=== PATIENT | female | born 1985 | race African-American/Black ===

== ENCOUNTER 2016-07-20 13:59 | Emergency (ER) | payer OTHER ==
[2016-07-20 15:31] VITALS: BP 150/100
--- NOTE | 2016-07-20 16:50 | UC ---
Dental HPI - HPI Summary HPI Summary: three days ago had LEFT LOWER WISDOM TOOTH PULLED BY [facility]. TODAY SWELLING AND PAIN ARE WORSE. UNABLE TO CONTROL PAIN WITH TYLENOL AND IBUPROFEN. NO FEVERS. NO DISCHARGE - History of Current Complaint Chief Complaint: UCDentalProblem Stated Complaint: TOOTH ACHE Time Seen by Provider: 07/20/16 15:37 Hx Obtained From: Patient Hx Last Menstrual Period: June 27 Onset/Duration: Sudden Onset, Lasting Days, Still Present Severity: Mild Aggravating: Chewing Related History: Previous Dental Care on Same Tooth, Swelling - Allergies/Home Medications Allergies/Adverse Reactions: Allergies Allergy/AdvReac Type Severity Reaction Status Date / Time No Known Allergies Allergy Verified 02/12/15 16:16 Home Medications: Home Medications Acetaminophen [Tylenol] 325 mg PO 07/20/16 [History] PMH/Surg Hx/FS Hx/Imm Hx Previously Healthy: Yes Endocrine History Of: Denies: Diabetes Cardiovascular History Of: Reports: Hypertension - on and off - Surgical History Surgical History: Yes Surgery Procedure, Year, and Place: [facility] - Family History Known Family History: Negative: Cardiac Disease - Social History Occupation: Employed Full-time Lives: With Family Alcohol Use: None Substance Use Type: None Smoking Status (MU): Never Smoked Tobacco Have You Smoked in the Last Year: No Review of Systems Constitutional: Negative Skin: Negative Eyes: Negative ENT: Dental Pain Respiratory: Negative Cardiovascular: Negative Gastrointestinal: Negative Genitourinary: Negative Motor: Negative Neurovascular: Negative Musculoskeletal: Negative Neurological: Negative Psychological: Negative All Other Systems Reviewed And Are Negative: Yes Physical Exam Triage Information Reviewed: Yes Appearance: Well-Appearing, No Pain Distress, Well-Nourished Vital Signs: Initial Vital Signs Temp 98.0 F 07/20/16 15:24 Pulse 89 07/20/16 15:24 Resp 18 07/20/16 15:24 BP 150/100 07/20/16 15:24 Pulse Ox 100 07/20/16 15:24 Vital Signs Reviewed: Yes Eye Exam: Normal Eyes: Positive: Conjunctiva Clear ENT Exam: Normal ENT: Positive: Normal ENT inspection, Hearing grossly normal, TMs normal Dental: Positive: Percussion Tenderness @ - 32, Other: - #32 POST EXTRACTION PAIN EDEMA Neck exam: Normal Respiratory Exam: Normal Respiratory: Positive: Chest non-tender, Lungs clear, Normal breath sounds, No respiratory distress, No accessory muscle use Cardiovascular Exam: Normal Cardiovascular: Positive: RRR, No Murmur, Pulses Normal Abdominal Exam: Normal Musculoskeletal Exam: Normal Musculoskeletal: Positive: Strength Intact, ROM Intact Neurological Exam: Normal Psychological Exam: Normal Psychological: Positive: Normal Response To Family Skin Exam: Normal Dental Complaint Course/Dx - Differential Dx/Diagnosis Differential Diagnosis/Dx: Dental Abscess, Dental Caries, Fractured Tooth, Post Extraction Pain Provider Diagnoses: #32 POST EXTRACTION DENTAL PAIN Discharge - Discharge Plan Condition: Stable Disposition: HOME Prescriptions: Amoxicillin/Clavulanate TAB* [Augmentin TAB 875*] 875 mg PO BID #20 tab traMADol TAB* [Ultram*] 50 mg PO Q12H PRN #8 tab MDD TWO TABS PRN Reason: Pain Patient Education Materials: Toothache (ED) Referrals: Denys Arevalo MD [Primary Care Provider] - [facility]: 1 - TENDER HERE
== END 2016-07-20 16:46 | disposition home or self-care (01) ==
LOC: UCEAST 13:59
DX: K08.409 Partial loss of teeth, unspecified cause, unspecified class (principal)
CPT/HCPCS: 99212; G0463

== ENCOUNTER 2016-10-12 10:52 | Emergency (ER) | payer OTHER ==
[2016-10-12 11:01] VITALS: BP 158/86
--- NOTE | 2016-10-12 11:27 | UC ---
Viktoriya, DoctorMonae, scribed for Delmer Parker MD on 10/12/16 at 1114 . Lower Extremity/Ankle HPI - HPI Summary HPI Summary: 31 year old female arrived to [facility] c/o right leg pain and edema. She reports feeling completely fine last night, and noticing pain and swelling this morning. She has pain while ambulating, as well as pain in the right ankle and the back of the right knee. She is able to move her toes and right ankle. She does not have any knowledge of injury/strain recently, and was in the car for a few hours yesterday with no other recent travel. She is a regular smoker; no PMHx of FHx of DVT. - History of Current Complaint Chief Complaint: UCLowerExtremity Stated Complaint: LEG SWELLING Time Seen by Provider: 10/12/16 11:02 Hx Obtained From: Patient Hx Last Menstrual Period: one month ago Onset/Duration: Gradual Onset Severity Initially: Moderate Severity Currently: Moderate Aggravating Factor(s): Ambulation Able to Bear Weight: Yes - Yes, but painful - Allergies/Home Medications Allergies/Adverse Reactions: Allergies Allergy/AdvReac Type Severity Reaction Status Date / Time No Known Allergies Allergy Verified 10/12/16 11:01 Home Medications: Home Medications NK [No Home Medications Reported] 10/12/16 [History Confirmed 10/12/16] PMH/Surg Hx/FS Hx/Imm Hx Endocrine History Of: Denies: Diabetes Cardiovascular History Of: Reports: Hypertension - on and off - Surgical History Surgical History: Yes Surgery Procedure, Year, and Place: [facility] - Family History Known Family History: Positive: Other - Negative: DVT Negative: Cardiac Disease - Social History Occupation: Employed Full-time Alcohol Use: Occasionally Substance Use Type: None Smoking Status (MU): Current Every Day Smoker Have You Smoked in the Last Year: No Review of Systems Constitutional: Other - Negative: Fever Musculoskeletal: Edema - right leg edema, Other: - right leg and ankle pain pain All Other Systems Reviewed And Are Negative: Yes Physical Exam Triage Information Reviewed: Yes Appearance: Well-Appearing, No Pain Distress Vital Signs: Initial Vital Signs Temp 98.9 F 10/12/16 10:57 Pulse 87 10/12/16 10:57 Resp 12 10/12/16 10:57 BP 158/86 04/22/17 10:57 Pulse Ox 99 10/12/16 10:57 Vital Signs Reviewed: Yes Eyes: Positive: Conjunctiva Clear, Other: - EOMI, LYNDA ENT: Positive: Normal ENT inspection Neck: Positive: Supple, Nontender Respiratory: Positive: Lungs clear, Normal breath sounds Cardiovascular: Positive: RRR Abdomen Description: Positive: Nontender, Soft Bowel Sounds: Positive: Present Musculoskeletal Exam: Normal Musculoskeletal: Positive: Strength Intact, ROM Intact, Edema @ - Pitting edema (right calf), Other: - tender right calf Psychological Exam: Normal Skin Exam: Normal Lower Extremity Course/Dx - Course Course Of Treatment: TRANSFER TO ED FOR US NO US HERE AT CLINIC TODAY. DISCUSSED WITH PATIENT. STABLE IN CLINIC. DISCUSSED WITH DR ROGERS IN ED. - Differential Dx/Diagnosis Provider Diagnoses: RIGHT LE SWELLING AND PAIN WITHOUT ANY KNOWN TRAUMA. - Physician Notifications Discussed Patient Care With: 1110: Discussed care of pt with Dr. Rogers ([facility]) . She agrees to accept pt. Discharge - Discharge Plan Condition: Stable Disposition: AGAINST MEDICAL ADVICE Referrals: Denys Arevalo MD [Primary Care Provider] - The documentation as recorded by the Doctor wynn Tahera accurately reflects the service I personally performed and the decisions made by me, Delmer Parker MD.
== END 2016-10-12 11:15 | disposition left against medical advice (07) ==
LOC: UCEAST 10:52
DX: R60.0 Localized edema (principal); F17.210 Nicotine dependence, cigarettes, uncomplicated; I10 Essential (primary) hypertension
CPT/HCPCS: 99212; G0463

== ENCOUNTER 2016-10-12 11:40 | Emergency (ER) | payer OTHER ==
[2016-10-12 12:01] VITALS: BP 160/83
[2016-10-12 13:11] LABS: Hematocrit 40 % (35-47); Hemoglobin 13.4 g/dl (12.0-16.0); Mean Corpuscular HGB Conc 34 g/dl (31-36); Mean Corpuscular Hemoglobin 29 pg (27-31); Mean Corpuscular Volume 87 fL (80-97); Mean Platelet Volume 11 um3 (7.4-10.4); Red Cell Distribution Width 13 % (10.5-15); White Blood Count 3.6 10^3/ul (3.5-10.8)
[2016-10-12 13:25] LABS: ALT 51 U/L (7-52); AST 39 U/L (13-39); Alkaline Phosphatase 69 U/L (34-104); Anion Gap 4 mmol/L (2-11); BUN/Creatinine Ratio 26.2 (8-20); Blood Urea Nitrogen 17 mg/dL (6-24); CO2 Carbon Dioxide 27 mmol/L (22-32); Calcium 9.5 mg/dL (8.6-10.3); Chloride 103 mmol/L (101-111); EGFR African American 135.8 (>60); EGFR Non-African American 105.6 (>60); Globulin 5.1 g/dL (2-4); Glucose 86 mg/dL (70-100); Potassium 3.8 mmol/L (3.5-5.0); Sodium 134 mmol/L (133-145); Total Protein 9.1 g/dL (6.4-8.9)
--- NOTE | 2016-10-12 13:48 | RAD ---
Indication: Right calf pain. Duplex Doppler sonography of the deep venous system of the right lower extremity deep venous system was performed. Bilaterally the common femoral veins appear patent and compressible. Right proximal greater saphenous vein, proximal deep femoral vein, femoral vein, popliteal vein, posterior tibial veins and peroneal veins appear patent and compressible. IMPRESSION: NO EVIDENCE OF DEEP VENOUS THROMBOSIS IS IDENTIFIED.
--- NOTE | 2016-10-26 17:59 | ED ---
Nilay Sadler Billy, scribed for Apolonia Mccann MD on 10/12/16 at 1413 . Lower Extremity - HPI Summary HPI Summary: Patient is a 31 year-old female coming to [facility] for evaluation of right lower extremity pain since last night. She denies any other symptoms such as chest pain or SOB. She reports that she had been on a long car ride recently, but she states that she may also have injured her RLE at work, where she stands for long periods of time. - History of Current Complaint Chief Complaint: EDExtremityLower Stated Complaint: RT LEG SWELLING/SENT FROM [facility] Time Seen by Provider: 10/12/16 11:54 Hx Obtained From: Patient Hx Last Menstrual Period: one month ago Mechanism Of Injury: Unknown - no injury Onset of Pain: Hours Onset/Duration: Hours Severity Initially: Moderate Severity Currently: Moderate Pain Intensity: 5 Pain Scale Used: 0-10 Numeric Timing: Constant Location: Is Discrete @ - RLE Character Of Pain: Aching Associated Signs And Symptoms: Positive: Negative Aggravating Factor(s): Nothing Alleviating Factor(s): Nothing Able to Bear Weight: Yes - Allergies/Home Medications Allergies/Adverse Reactions: Allergies Allergy/AdvReac Type Severity Reaction Status Date / Time No Known Allergies Allergy Verified 10/12/16 11:59 PMH/Surg Hx/FS Hx/Imm Hx Endocrine/Hematology History: Denies: Hx Diabetes Cardiovascular History: Reports: Hx Hypertension - not on meds GI History: Reports: Hx Gastroesophageal Reflux Disease - ON DAILY OMEPRAZOLE Sensory History: Reports: Hx Contacts or Glasses - GLASSES Opthamlomology History: Reports: Hx Contacts or Glasses - GLASSES - Cancer History Cancer Type, Location and Year: none - Surgical History Surgery Procedure, Year, and Place: [facility] Hx Anesthesia Reactions: No Infectious Disease History: No Infectious Disease History: Denies: Hx Clostridium Difficile, Hx Hepatitis, Hx Human Immunodeficiency Virus (HIV), Hx of Known/Suspected MRSA, Hx Shingles, Hx Tuberculosis, Hx Known/ Suspected VRE, Hx Known/Suspected VRSA, History Other Infectious Disease, Traveled Outside the [place] in Last 30 Days - Family History Known Family History: Positive: Other - Negative: DVT Negative: Cardiac Disease Family History: Family history of various cancers. - Social History Alcohol Use: Occasionally Substance Use Type: Reports: None Smoking Status (MU): Light Every Day Tobacco Smoker Have You Smoked in the Last Year: No Review of Systems Constitutional: Negative Negative: Chest Pain Negative: Shortness Of Breath Gastrointestinal: Negative Positive: Myalgia Neurological: Negative Psychological: Normal All Other Systems Reviewed And Are Negative: Yes Physical Exam Triage Information Reviewed: Yes Vital Signs On Initial Exam: Initial Vitals Temp Pulse Resp BP Pulse Ox 98.3 F 86 16 160/83 100 10/12/16 11:59 10/12/16 11:59 10/12/16 11:59 10/12/16 11:59 10/12/16 11:59 Vital Signs Reviewed: Yes Appearance: Positive: No Pain Distress Skin: Positive: Warm, Dry Head/Face: Positive: Normal Head/Face Inspection Eyes: Positive: EOMI, Conjunctiva Clear ENT: Positive: Hearing grossly normal. Negative: Muffled/hoarse voice Neck: Positive: Supple, Nontender Respiratory/Lung Sounds: Positive: Clear to Auscultation, Breath Sounds Present Cardiovascular: Positive: RRR, Pulses are Symmetrical in both Upper and Lower Extremities. Negative: Murmur Abdomen Description: Positive: Nontender, Soft Bowel Sounds: Positive: Present Musculoskeletal: Positive: Strength/ROM Intact. Negative: Edema Left, Edema Right Neurological: Positive: Sensory/Motor Intact, Alert, Oriented to Person Place, Time. Negative: Facial Droop, Focal Deficit @, Slurred Speech Diagnostics - Vital Signs Vital Signs Temp Pulse Resp BP Pulse Ox 10/12/16 12:01 98.2 F 82 16 160/83 100 10/12/16 11:59 98.3 F 86 16 160/83 100 - Laboratory Lab Results: Lab Results 10/12/16 10/12/16 10/12/16 Range/Units 12:55 12:55 12:55 WBC 3.6 (3.5-10.8) 10^3/ul RBC 4.60 (4.0-5.4) 10^6/ul Hgb 13.4 (12.0-16.0) g/dl Hct 40 (35-47) % MCV 87 (80-97) fL MCH 29 (27-31) pg MCHC 34 (31-36) g/dl RDW 13 (10.5-15) % Plt Count 110 L (150-450) 10^3/ul MPV 11 H (7.4-10.4) um3 Neut % (Auto) 46.3 (38-83) % Lymph % (Auto) 34.8 (25-47) % Throckmorton % (Auto) 17.6 H (1-9) % Eos % (Auto) 0.8 (0-6) % Baso % (Auto) 0.5 (0-2) % Absolute Neuts (auto) 1.7 (1.5-7.7) 10^3/ul Absolute Lymphs (auto) 1.2 (1.0-4.8) 10^3/ul Absolute Monos (auto) 0.6 (0-0.8) 10^3/ul Absolute Eos (auto) 0 (0-0.6) 10^3/ul Absolute Basos (auto) 0 (0-0.2) 10^3/ul Absolute Nucleated RBC 0.01 10^3/ul Nucleated RBC % 0.2 INR (Anticoag Therapy) 1.06 (0.89-1.11) Sodium 134 (133-145) mmol/L Potassium 3.8 (3.5-5.0) mmol/L Chloride 103 (101-111) mmol/L Carbon Dioxide 27 (22-32) mmol/L Anion Gap 4 (2-11) mmol/L BUN 17 (6-24) mg/dL Creatinine 0.65 (0.51-0.95) mg/dL Est GFR ( Amer) 135.8 (>60) Est GFR (Non-Af Amer) 105.6 (>60) BUN/Creatinine Ratio 26.2 H (8-20) Glucose 86 (70-100) mg/dL Calcium 9.5 (8.6-10.3) mg/dL Total Bilirubin 0.30 (0.2-1.0) mg/dL AST 39 (13-39) U/L ALT 51 (7-52) U/L Alkaline Phosphatase 69 (34-104) U/L C-Reactive Protein 8.50 H (< 5.00) mg/L Total Protein 9.1 H (6.4-8.9) g/dL Albumin 4.0 (3.2-5.2) g/dL Globulin 5.1 H (2-4) g/dL Albumin/Globulin Ratio 0.8 L (1-3) Beta HCG, Quant < 0.60 mIU/mL Result Diagrams: 04/22/17 12:55 10/12/16 12:55 Lab Statement: Any lab studies that have been ordered have been reviewed, and results considered in the medical decision making process. - Ultrasound No standard instances Ultrasound Interpretation Completed By: Radiologist - RLE ultrasound: No evidence for DVT. Lower Extremity Course/Dx - Course Assessment/Plan: 31 year-old female coming to the ED for evaluation of RLE pain since last night. RLE US was negative for DVT. Labs reviewed. Patient will be discharged home to follow up with PCP. - Diagnoses Provider Diagnoses: Leg pain, Hypertension, poor control Discharge - Discharge Plan Condition: Stable Disposition: HOME Patient Education Materials: Leg Pain (ED) Forms: *Work Release Referrals: Denys Arevalo MD [Primary Care Provider] - The documentation as recorded by the Nilay wynn Billy accurately reflects the service I personally performed and the decisions made by Ramy toussaint Barbara J, MD.
== END 2016-10-12 14:40 | disposition home or self-care (01) ==
LOC: ED 11:40
DX: I10 Essential (primary) hypertension (principal); M79.606 Pain in leg, unspecified
CPT/HCPCS: 36415; 80053; 84702; 85025; 85610; 86140; 99282

== ENCOUNTER 2016-12-30 09:57 | Emergency (ER) | payer OTHER ==
[2016-12-30 10:25] VITALS: BP 159/81
== END 2016-12-30 11:50 | disposition left against medical advice (07) ==
LOC: UCEAST 09:57
DX: R06.00 Dyspnea, unspecified (principal)

== ENCOUNTER 2017-12-26 23:54 | Emergency (ER) | payer OTHER ==
[2017-12-27] MEDS ORDERED: Ketorolac INJ* 30 MG/ML 1 ML VIAL IM ONE (01:11)
[2017-12-27] MEDS ORDERED: Lidocaine PATCH 5%* 1 PATCH TRANSDERM ONE (01:11)
[2017-12-27] MEDS ORDERED: Cyclobenzaprine TAB* 10 MG PO ONE (01:11)
--- NOTE | 2017-12-27 01:13 | ED ---
Lower Extremity - HPI Summary HPI Summary: 32-year-old female presents with left hip pain today. 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 She denies any history of hip pain. She's denies any back pain. No numbness or tingling. No weakness. No injury. No fevers. She hasn't taking anything for pain. States as time progressed the pain has gone worse. Denies any urinary symptoms. She has history of HTN. She is able to ambulate. She denies any back pain. No saddle anesthesia or loss of bowel or bladder. - History of Current Complaint Chief Complaint: EDHipPelvisInjury Stated Complaint: HIP PAIN Time Seen by Provider: 12/27/17 01:05 Hx Last Menstrual Period: 12/20/16 Pain Intensity: 7 - Allergies/Home Medications Allergies/Adverse Reactions: Allergies Allergy/AdvReac Type Severity Reaction Status Date / Time No Known Allergies Allergy Verified 10/12/16 11:59 PMH/Surg Hx/FS Hx/Imm Hx Endocrine/Hematology History: Denies: Hx Diabetes Cardiovascular History: Reports: Hx Hypertension - not on meds GI History: Reports: Hx Gastroesophageal Reflux Disease - ON DAILY OMEPRAZOLE Sensory History: Reports: Hx Contacts or Glasses - GLASSES Opthamlomology History: Reports: Hx Contacts or Glasses - GLASSES - Cancer History Cancer Type, Location and Year: none - Surgical History Surgery Procedure, Year, and Place: [facility] Hx Anesthesia Reactions: No Infectious Disease History: No Infectious Disease History: Denies: Hx Clostridium Difficile, Hx Hepatitis, Hx Human Immunodeficiency Virus (HIV), Hx of Known/Suspected MRSA, Hx Shingles, Hx Tuberculosis, Hx Known/ Suspected VRE, Hx Known/Suspected VRSA, History Other Infectious Disease, Traveled Outside the [place] in Last 30 Days - Family History Known Family History: Positive: Other - Negative: DVT Negative: Cardiac Disease Family History: Family history of various cancers. - Social History Alcohol Use: Rare Substance Use Type: Reports: None Smoking Status (MU): Former Smoker Have You Smoked in the Last Year: No Review of Systems Negative: Fever Negative: Chest Pain Negative: Shortness Of Breath Positive: Myalgia - left hip pain All Other Systems Reviewed And Are Negative: Yes Physical Exam Triage Information Reviewed: Yes Vital Signs On Initial Exam: Initial Vitals Temp Pulse Resp BP Pulse Ox 97.9 F 110 20 161/114 100 07/06/18 23:56 12/26/17 23:56 12/26/17 23:56 12/26/17 23:56 12/26/17 23:56 Vital Signs Reviewed: Yes Appearance: Positive: Well-Appearing Skin: Positive: Warm, Dry Head/Face: Positive: Normal Head/Face Inspection Eyes: Positive: Normal, Conjunctiva Clear ENT: Positive: Pharynx normal Respiratory/Lung Sounds: Positive: Clear to Auscultation, Breath Sounds Present Cardiovascular: Positive: Normal, RRR Musculoskeletal: Positive: Strength/ROM Intact - Left hip with pain, Other - Nontender back, and nontender SI joint, tenderness over left hip, no rash, good pulses, sensation grossly intact, positive Fernando test Neurological: Positive: Normal Psychiatric: Positive: Normal Diagnostics - Vital Signs Vital Signs Temp Pulse Resp BP Pulse Ox 12/26/17 23:56 97.9 F 110 20 161/114 100 - Laboratory Lab Statement: Any lab studies that have been ordered have been reviewed, and results considered in the medical decision making process. Lower Extremity Course/Dx - Course Course Of Treatment: 32-year-old female presents with left hip pain today. 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 She denies any history of hip pain. She's denies any back pain. No numbness or tingling. No weakness. No injury. No fevers. She hasn't taking anything for pain. States as time progressed the pain has gone worse. Denies any urinary symptoms. She has history of HTN. She is able to ambulate. On exam has tenderness over left hip. Positive FERNANDO test. Full range of motion of hip with pain. Neurovascular intact. Did not get x-rays as has full range of motion and good strength. Will treat with ibuprofen and Flexeril. Told to follow-up with primary. Patient understands and agrees plan. - Diagnoses Differential Diagnosis/HQI/PQRI: Positive: Fracture (Closed), Sprain, Strain Provider Diagnoses: Left hip pain Discharge - Sign-Out/Discharge Documenting (check all that apply): Discharge/Admit/Transfer - Discharge Plan Condition: Good Disposition: HOME Prescriptions: Cyclobenzaprine TAB* [Flexeril 10 MG TAB*] 10 mg PO TID PRN #15 tab PRN Reason: Pain Patient Education Materials: Hip Pain (ED) Forms: *Work Release Referrals: Denys Arevalo MD [Primary Care Provider] - Additional Instructions: Take muscle relaxers three times a day Use ibuprofen or Tylenol for pain every 6 hours ice/heat area, move as much as possible Follow up with primary within 5 days Return to ED if develop any new or worsening symptoms - Billing Disposition and Condition Condition: GOOD Disposition: Home
[2017-12-27 01:47] VITALS: BP 142/100
== END 2017-12-27 01:52 | disposition home or self-care (01) ==
LOC: ED 23:54
DX: M25.552 Pain in left hip (principal); Z87.891 Personal history of nicotine dependence; Z87.19 Personal history of other diseases of the digestive system; Z86.79 Personal history of other diseases of the circulatory system
CPT/HCPCS: 96372; 99283; A9270-GY; J1885

== ENCOUNTER 2018-04-04 23:13 | Emergency (ER) | payer OTHER ==
--- OUTSIDE RECORDS SUMMARY | 2018-04-04 23:42 | XMS REPORT ---
:1985 External Reference #:[id number] Author Organization [employer] Address [address] [place] [address] [place] [address] Phone [phone] Care Team Providers Name Role Phone Luis Wong MD Primary Care Physician Unavailable Payers Type Date Identification Numbers Payment Provider Subscriber Commercial Expires: Policy Number: [id number] [employer] Johanna Parikh 2015 Medicaid Group Name: [id number] [address] [address] PayID: [id number] [place] [address] Commercial Policy Number: [id number] [employer] Medicaid Johanna Parikh PayID: [id number] [address] [address] [place] [address] Problems Date Description Provider Status Onset: 01/20/2018 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 Family History Date Family Member(s) Problem(s) Comments General Hypertension General Stroke General Cancer Social History Type Date Description Comments Lives With Alone Occupation Retail ETOH Use Denies alcohol use Smoking Patient is a former smoker Exercise Type/Frequency Exercises sporadically Allergies, Adverse Reactions, Alerts Date Description Reaction Status Severity Comments 02/22/2016 NKDA active Medications Medication Date Status Form Strength Qnty SIG Indications Ordering Provider Diclofenac Sodium 03/17/ Active Tablets 75mg 60tabs take [address] yoni Lai MD twice a day with food Tylenol 00/00/ Active Tablets 325mg as Unknown 0000 needed Naproxen 00/00/ Active Tablets 500mg 1 tablet Unknown 0000 with food by mouth twice a day Cyclobenzaprine / Active Tablets 10mg 1 tablet Unknown HCL 0000 by mouth q8 hours as needed muscle spasms Ultracet 03/15/ Hx Tablets 37.5-325mg 30tabs 1 - 2 po Lilly 2012 - q4-6hr Rui 06/23/ prn pain M.DMariluz 2016 Medications Administered in Office Medication Date Status Form Strength Qnty SIG Indications Ordering Provider Triamcinolone 01/20/ Administered Injection Zaneb (Kenalog) 2017 MD Ming Vital Signs Date Vital Result Comment 03/17/2018 Height 74 inches 6'2" Weight 270.00 lb BP Systolic 128 mmHg BP Diastolic 80 mmHg Respiratory Rate 18 /min Pain Level 5 BMI (Body Mass Index) 34.7 kg/m2 01/20/2018 Height 74 inches 6'2" Weight 270.00 lb BP Systolic 132 mmHg BP Diastolic 78 mmHg Respiratory Rate 18 /min Pain Level 5 BMI (Body Mass Index) 34.7 kg/m2 01/13/2018 Height 74 inches 6'2" Heart Rate 96 /min BP Systolic 118 mmHg BP Diastolic 78 mmHg Body Temperature 98.1 F Pain Level 7 04/17/2016 Height 74 inches 6'2" Heart Rate 96 /min BP Systolic 134 mmHg BP Diastolic 80 mmHg Pain Level 4 02/22/2016 Height 74 inches 6'2" Weight 250.00 lb Heart Rate 84 /min BP Systolic 137 mmHg BP Diastolic 86 mmHg BMI (Body Mass Index) 32.1 kg/m2 Results Description No Information Procedures Date CPT Code Description Status 01/20/2018 63177 Inj/Aspir Major JT Or Bursa W/ US Completed 03/19/2016 65218 Nerve Conduction 07-08 Studies Completed 03/19/2016 62113 Needle Electromyography Each Extremity W/Related Completed Paraspinal Areas 03/16/2013 98958 Carpal Tunnel Release Completed 03/16/2013 77647 Trigger Finger Release Incision / Tendon Sheath Completed Incision Encounters Type Date Location Provider CPT E/M Dx Office Visit 01/13/2018 10:45a [facility] [place] [address] M24.152 C.[facility].A. M54.16 M70.62 Office Visit 04/17/2016 3:10p [facility] [address] G56.02 Of C.M.AMariluz Al G56.01 G56.03 Office Visit 02/22/2016 2:30p [facility] 74997 G56.01 Of Ricky Al G56.02 R20.0 R20.2 Office Visit 03/04/2013 1:45p [facility], [address] 354.0 Ricky Al 727.03 Plan of Care 03/17/2018 - Chanel Lai, MDM24.152 Other articular cartilage disorders, left hipNew Medication:Diclofenac Sodium 75 mgNew Xrays:MRI Hip Left ArthrogramFollow up:Follow up: after MRI
[2018-04-05] MEDS ORDERED: Cyclobenzaprine TAB* 10 MG PO ONE (01:19)
[2018-04-05] MEDS ORDERED: Ibuprofen TAB* 600 MG PO ONE (01:19)
--- NOTE | 2018-04-05 01:20 | ED ---
Upper Extremity Pain - HPI Summary HPI Summary: Patient is a 32-year-old female presenting to the ED with left shoulder pain over the scapula region. She denies any trauma. She states the shoulder began to hurt 2-3 days ago and is been continuing despite ibuprofen at home. She denies any numbness or tingling to the arm. Denies any ecchymosis, color or temperature changes. She states this is never happened to her before. 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 She denies any other symptoms. - History of Current Complaint Chief Complaint: HaiderSlava Stated Complaint: LT SHOULDER PAIN Time Seen by Provider: 04/04/18 23:50 Hx Obtained From: Patient Hx Last Menstrual Period: 12/20/16 Onset/Duration: Started Days Ago Timing: Constant Severity Initially: Moderate Severity Currently: Moderate Pain Location: Other: - scapular pain - L Aggravating Factor(s): Nothing Alleviating Factor(s): Rest Associated Signs & Symptoms: Negative: Swelling, Redness, Bruising Related History: Dominant Hand Right - Risk Factors Non-Orthopedic Risk Factor: Negative DVT Risk Factors: Negative Septic Arthritis Risk Factor: Negative Compartment Syndrome Risk Factors: Pain - Allergies/Home Medications Allergies/Adverse Reactions: Allergies Allergy/AdvReac Type Severity Reaction Status Date / Time No Known Allergies Allergy Verified 04/04/18 23:29 PMH/Surg Hx/FS Hx/Imm Hx Previously Healthy: Yes Endocrine/Hematology History: Denies: Hx Diabetes Cardiovascular History: Denies: Hx Hypertension, Hx Pacemaker/ICD GI History: Reports: Hx Gastroesophageal Reflux Disease - ON DAILY OMEPRAZOLE Sensory History: Reports: Hx Contacts or Glasses - GLASSES Denies: Hx Hearing Aid Opthamlomology History: Reports: Hx Contacts or Glasses - GLASSES Psychiatric History: Denies: Hx Panic Disorder - Cancer History Cancer Type, Location and Year: none - Surgical History Surgery Procedure, Year, and Place: CHOLECYSTECTOMY 3 YRS AGO Hx Anesthesia Reactions: No - Immunization History Hx Pertussis Vaccination: No Immunizations Up to Date: Yes Infectious Disease History: No Infectious Disease History: Denies: Hx Clostridium Difficile, Hx Hepatitis, Hx Human Immunodeficiency Virus (HIV), Hx of Known/Suspected MRSA, Hx Shingles, Hx Tuberculosis, Hx Known/ Suspected VRE, Hx Known/Suspected VRSA, History Other Infectious Disease, Traveled Outside the [place] in Last 30 Days - Family History Known Family History: Positive: Other - Negative: DVT Negative: Cardiac Disease Family History: Family history of various cancers. - Social History Occupation: Employed Full-time Lives: With Family Alcohol Use: Occasionally Hx Substance Use: No Substance Use Type: Reports: None Hx Tobacco Use: Yes Smoking Status (MU): Former Smoker Have You Smoked in the Last Year: No Review of Systems Constitutional: Negative Negative: Fever, Chills, Fatigue, Skin Diaphoresis Negative: Palpitations, Chest Pain Negative: Shortness Of Breath, Cough Genitourinary: Negative Positive: no symptoms reported, see HPI Positive: Arthralgia, Myalgia Skin: Negative Neurological: Negative All Other Systems Reviewed And Are Negative: Yes Physical Exam Triage Information Reviewed: Yes Vital Signs On Initial Exam: Initial Vitals Temp Pulse Resp BP Pulse Ox 97.5 F 88 16 163/102 99 04/04/18 23:25 04/04/18 23:25 04/04/18 23:25 04/04/18 23:25 04/04/18 23:25 Vital Signs Reviewed: Yes Appearance: Positive: Well-Appearing, Well-Nourished Skin: Positive: Warm, Skin Color Reflects Adequate Perfusion Head/Face: Positive: Normal Head/Face Inspection Eyes: Positive: EOMI, LYNDA, Conjunctiva Clear Neck: Positive: Supple, No Lymphadenopathy Respiratory/Lung Sounds: Positive: Clear to Auscultation, Breath Sounds Present Cardiovascular: Positive: RRR, Pulses are Symmetrical in both Upper and Lower Extremities Musculoskeletal: Positive: Pain @ - left scapular region under shoulder blade - no pain to the RTC Neurological: Positive: Sensory/Motor Intact, Alert, Oriented to Person Place, Time, Speech Normal Diagnostics - Vital Signs Vital Signs Temp Pulse Resp BP Pulse Ox 04/04/18 23:25 97.5 F 88 16 163/102 99 - Laboratory Lab Statement: Any lab studies that have been ordered have been reviewed, and results considered in the medical decision making process. Course/Dx - Course Course Of Treatment: Patient is evaluated for left shoulder pain. She denies any injury. Denies any ecchymosis, other color or temperature changes. She denies trauma. She states the pain is directly under the scapular region and radiates up into the neck and down the arm. Pain is a 2/10, constant and aching. Improved somewhat with ibuprofen and heat. Discussed with patient treatment options. I have offered Flexeril. I believe this is an overuse injury from her job and I have encouraged gentle stretches, Flexeril, ibuprofen , moist heat and to stop the ensuing activity which is causing her tendinopathy. - Diagnoses Differential Diagnosis/HQI/PQRI: Positive: Fracture (Closed), Strain, Sprain Provider Diagnoses: Tendinopathy, Shoulder pain Discharge - Sign-Out/Discharge Documenting (check all that apply): Patient Departure - Discharge Plan Condition: Stable Disposition: HOME Referrals: Denys Arevalo MD [Primary Care Provider] - Additional Instructions: Heat to the area Ibuprofen 600 mg 3 times daily 5 days Flexeril up to 3 times daily for muscle pain Gentle stretches against a wall Tennis ball massage Massage therapy Don't lift push or pull heavy objects and no repetitive movements Resting as much as possible will help - Billing Disposition and Condition Condition: STABLE Disposition: Home
[2018-04-05 02:30] VITALS: BP 131/92
== END 2018-04-05 02:30 | disposition home or self-care (01) ==
LOC: ED 23:13
DX: M75.80 Other shoulder lesions, unspecified shoulder (principal); M25.512 Pain in left shoulder; Z87.891 Personal history of nicotine dependence
CPT/HCPCS: 99282; A9270-GY

== ENCOUNTER 2018-07-08 08:24 | Inpatient (IN) | payer OTHER ==
--- NOTE | 2018-07-08 08:57 | ED ---
Upper Extremity Pain - HPI Summary HPI Summary: A 32 y/o F presents to ED with c/o sudden-onset, atraumatic, LUE numbness and pain onset 2 days ago and worsening yesterday. The numbness and pain were intermittent but is becoming more constant. Pain rated as 8 out of 10 at bedside. Pt describes the pain as going from her shoulder to her finger tips. She has had recent previous LUE pain from elbow to fingertips, dx: sprain, but those sx were not as severe. Associated sx: L hand weakness, mild neck pain. Denies: confusion. Alleviating factor: applying pressure. OTC medication has not alleviated the symptoms. PMHx: Denies DM, HTN. At baseline, she has a hx of bilateral LE edema and joint pain for which she is scheduled to see a rhumatologist next month. - History of Current Complaint Chief Complaint: EDExtremityUpper Stated Complaint: PAIN IN LEFT ARM/NUMBNESS Time Seen by Provider: 07/08/18 08:44 Hx Obtained From: Patient Hx Last Menstrual Period: 12/20/16 Mechanism Of Injury: Unknown - denies trauma Onset/Duration: Started Days Ago, Still Present Timing: Intermittent, Lasting Days Severity Initially: Moderate Severity Currently: Severe - 8 out of 10 Pain Location: Arm - LUE shoulder to hand Alleviating Factor(s): Other - pressure Associated Signs & Symptoms: Positive: Weakness - L hand, Numbness/Tingling - LUE, Neck Pain - mild, Other - neg: confusion - Allergies/Home Medications Allergies/Adverse Reactions: Allergies Allergy/AdvReac Type Severity Reaction Status Date / Time No Known Allergies Allergy Verified 07/08/18 08:32 Home Medications: Home Medications Meloxicam(NF) [Mobic(NF)] 15 mg PO DAILY 07/08/18 [History Confirmed 07/08/18] PMH/Surg Hx/FS Hx/Imm Hx Previously Healthy: No Endocrine/Hematology History: Denies: Hx Diabetes Cardiovascular History: Denies: Hx Hypertension, Hx Pacemaker/ICD GI History: Reports: Hx Gastroesophageal Reflux Disease - ON DAILY OMEPRAZOLE Sensory History: Reports: Hx Contacts or Glasses - GLASSES Denies: Hx Hearing Aid Opthamlomology History: Reports: Hx Contacts or Glasses - GLASSES Psychiatric History: Denies: Hx Panic Disorder - Cancer History Cancer Type, Location and Year: none - Surgical History Surgery Procedure, Year, and Place: CHOLECYSTECTOMY 3 YRS AGO Hx Anesthesia Reactions: No Infectious Disease History: No Infectious Disease History: Denies: Hx Clostridium Difficile, Hx Hepatitis, Hx Human Immunodeficiency Virus (HIV), Hx of Known/Suspected MRSA, Hx Shingles, Hx Tuberculosis, Hx Known/ Suspected VRE, Hx Known/Suspected VRSA, History Other Infectious Disease, Traveled Outside the [place] in Last 30 Days - Family History Known Family History: Positive: Other - Negative: DVT Negative: Cardiac Disease Family History: Family history of various cancers. - Social History Occupation: Employed Full-time Lives: Alone Alcohol Use: Occasionally Hx Substance Use: No Substance Use Type: Reports: None Hx Tobacco Use: Yes Smoking Status (MU): Former Smoker Have You Smoked in the Last Year: No Review of Systems Musculoskeletal: Other - pos: LUE pain from shoulder to hand; mild neck pain Neurological: Other - neg: confusion Positive: Weakness - L hand, Numbness - LUE All Other Systems Reviewed And Are Negative: Yes Physical Exam - Summary Physical Exam Summary: VITAL SIGNS: Reviewed. GENERAL: Patient is a well-developed and nourished FEMALE who is lying comfortable in the stretcher. Patient is not in any acute respiratory distress. HEAD AND FACE: No signs of trauma. No ecchymosis, hematomas or skull depressions. No sinus tenderness. EYES: PERRLA, EOMI x 2, No injected conjunctiva, no nystagmus. EARS: Hearing grossly intact. Ear canals and tympanic membranes are within normal limits. MOUTH: Oropharynx within normal limits. NECK: Supple, trachea is midline, no adenopathy, no JVD, no carotid bruit, some c-spine tenderness CHEST: Symmetric, no tenderness at palpation LUNGS: Clear to auscultation bilaterally. No wheezing or crackles. CVS: Regular rate and rhythm, S1 and S2 present, no murmurs or gallops appreciated. ABDOMEN: Soft, non-tender. No signs of distention. No rebound, no guarding, and no masses palpated. Bowel sounds are normal. EXTREMITIES: LUE weakness worse compared to RUE; decreased sensation in L compared to R; Phalen's test is positive NEURO: Alert and oriented x 3. No acute neurological deficits. Speech is normal and follows commands. SKIN: Dry and warm Triage Information Reviewed: Yes Vital Signs On Initial Exam: Initial Vitals Temp Pulse Resp BP Pulse Ox 97.0 F 92 16 154/93 99 07/08/18 08:27 07/08/18 08:27 07/08/18 08:27 07/08/18 08:27 07/08/18 08:27 Vital Signs Reviewed: Yes - Apurva Coma Scale Best Eye Response: 4 - Spontaneous Best Motor Response: 6 - Obeys Commands Best Verbal Response: 5 - Oriented Coma Scale Total: 15 Diagnostics - Vital Signs Vital Signs Temp Pulse Resp BP Pulse Ox 07/08/18 08:27 97.0 F 92 16 154/93 99 - Laboratory Result Diagrams: 07/08/18 09:30 07/08/18 09:30 Lab Statement: Any lab studies that have been ordered have been reviewed, and results considered in the medical decision making process. - Radiology L WRIST XR Radiology Interpretation Completed By: Radiologist Summary of Radiographic Findings: IMPRESSION: NO ACUTE OSSEOUS INJURY. IF SYMPTOMS PERSIST, RECOMMEND REPEAT IMAGING. ED provider has reviewed this report. - CT BRAIN CT CT Interpretation Completed By: Radiologist Summary of CT Findings: IMPRESSION: No acute intracranial pathology. ED provider has reviewed this report. C-SPINE CT Interpretation Completed By: Radiologist Summary of CT Findings: IMPRESSION: 1. STRAIGHTENING OF THE CERVICAL LORDOSIS. 2. MILD DEGENERATIVE DISC DISEASE DESCRIBED ABOVE, WITHOUT OSSEOUS NEURAL FORAMINAL. NARROWING OR CENTRAL CANAL STENOSIS. 3. MULTIPLE SUBCENTIMETER SHORT AXIS LYMPH NODES OF THE UPPER NECK WITHOUT. LYMPHADENOPATHY BY SIZE CRITERIA. ED provider has reviewed this report. Course/Dx - Course Assessment/Plan: A 32 y/o F presents to ED with c/o sudden-onset, atraumatic, LUE numbness and pain onset 2 days ago and worsening yesterday. The numbness and pain were intermittent but is becoming more constant. Pain rated as 8 out of 10 at bedside. Pt describes the pain as going from her shoulder to her finger tips. She has had recent previous LUE pain from elbow to fingertips, dx: sprain, but those sx were not as severe. Associated sx: L hand weakness, mild neck pain. Denies: confusion. Alleviating factor: applying pressure. OTC medication has not alleviated the symptoms. PMHx: Denies DM, HTN. At baseline, she has a hx of bilateral LE edema and joint pain for which she is scheduled to see a rhumatologist next month. Blood work without any significant abnormality except for what was a count WBC of 2.6 and platelets of 6. Glucose is 102, CRP was 8.22. Because of the weakness and the numbness in the left upper extremity , decided to do a head CT and C-spine CT. Head CT impression: No acute interconnected pathology. C-spine CT impression: And straightening of the cervical lordosis. Mild degenerative disc disease. No gross used or foraminal narrowing or central canal stenosis. Multiple subcentric short axis lymph nodes of the open neck without lymphadenopathy. Initially in the ED course the patient was given Toradol for the pain and Decadron does not inflammatory. I discussed case with Dr. Gómez from hematology and he will consult for this patient. He recommends admission to the hospital services. The patient appears to be stable she doesnt have any bruising or any sites of bleeding. I discuss my physical exam, findings and test results with Dr. Galindo from the hospitalist services and he agrees to admit patient to his services. Patient is hemodynamically stable alert and oriented x 3. - Diagnoses Differential Diagnosis/HQI/PQRI: Positive: Bursitis, Fracture (Closed), Strain, Sprain Provider Diagnoses: Acute ITP, LUE numbness, Neck pain - Physician Notifications Discussed Care of Patient With: Juan Gómez - oncology Time Discussed With Above Provider: 10:15 Instructed by Provider To: Other - Will consult, recommends admission via hospitalist Discharge - Sign-Out/Discharge Documenting (check all that apply): Patient Departure - ADM - Discharge Plan Condition: Stable Disposition: ADMITTED TO [facility] Referrals: Luis Wong MD [Primary Care Provider] - - Billing Disposition and Condition Condition: STABLE Disposition: Admitted to [facility] - Attestation Statements Document Initiated by Reggieibnata: Yes Documenting Scribe: Aydee Edwards Provider For Whom Konstantin is Documenting (Include Credential): Dr. Faraz Lyon MD Scribe Attestation: Aydee Sadler scribed for Dr. Faraz Lyon MD on 07/08/18 at 1212. Scribe Documentation Reviewed: Yes Provider Attestation: The documentation as recorded by the Aydee wynn accurately reflects the service I personally performed and the decisions made by me, Dr. Faraz Lyon MD Status of Scribe Document: Viewed Consult Consult: 1035: Consult with Dr. Galindo, hospitalist Will admit patient.
[2018-07-08] MEDS ORDERED: Dexamethasone IV* 4 MG/ML 1 ML (4 MG) IV SLOW PU ONE (09:03)
[2018-07-08] MEDS ORDERED: Ketorolac INJ* 30 MG/ML 1 ML VIAL IV PUSH ONE (09:03)
[2018-07-08 09:55] LABS: Hematocrit 36 % (35-47); Hemoglobin 12.2 g/dl (12.0-16.0); Mean Corpuscular HGB Conc 34 g/dl (31-36); Mean Corpuscular Hemoglobin 29 pg (27-31); Mean Corpuscular Volume 86 fL (80-97); Red Blood Count 4.21 10^6/ul (4.00-5.40); Red Cell Distribution Width 13 % (10.5-15); White Blood Count 2.6 10^3/ul (3.5-10.8)
[2018-07-08 09:58] LABS: Albumin 4.1 g/dL (3.2-5.2); Albumin/Globulin Ratio 0.9 (1-3); C Reactive Protein 8.22 mg/L (<8.01); Calcium 9.1 mg/dL (8.6-10.3); EGFR African American 109.4 (>60); EGFR Non-African American 90.4 (>60); Globulin 4.5 g/dL (2-4); Potassium 3.5 mmol/L (3.5-5.0); Total Bilirubin 0.4 mg/dL (0.2-1.0); Total Protein 8.6 g/dL (6.4-8.9)
[2018-07-08 10:19] LABS: ABS Basophils 0 10^3/ul (0-0.2); ABS Eosinophils 0 10^3/ul (0-0.6); ABS Lymphocytes 0.5 10^3/ul (1.0-4.8); ABS Monocytes 0.3 10^3/ul (0-0.8); ABS Neutrophils 1.7 10^3/ul (1.5-7.7); ABS Nucleated RBC 0 10^3/ul; Eosinophil % 1.6 %; Lymphocyte % 21.2 %; Mean Platelet Volume 12.3 fL (7.4-10.4); Nucleated Red Blood Cells % 0.1
[2018-07-08 10:57] LABS: Platelet Count 8 10^3/ul (150-450)
[2018-07-08 11:04] LABS: Erythrocyte Sed Rate 79 mm/Hr (0-14)
[2018-07-08 13:53] LABS: Uric Acid 6.4 mg/dL (2.3-6.6)
[2018-07-08] MEDS: oxyCODONE/Acetamin 5/325 MG* TAB PO PRN ×2 (14:28→19:23)
--- NOTE | 2018-07-08 14:57 | HP ---
HISTORY AND PHYSICAL: DATE OF ADMISSION: 07/08/18 PRIMARY CARE PROVIDER: Dr. Luis Wong. ATTENDING PHYSICIAN: Dr. Chacorta Galindo.* (DICTATED BY MARIO ALBERTO PEREZ) CHIEF COMPLAINT: Left shoulder and arm pain. HISTORY OF PRESENT ILLNESS: Ms. Parikh is a 32-year-old female with a past medical history of GERD who presented to the ER today with complaints of left shoulder and arm pain for approximately 2 days. She states that it has gotten worse in the last 24 hours. She has no history of injury. She reports that a similar incident occurred approximately 1 month ago where she had pain from her left elbow down to her fingertips and felt numbness and tingling from the fingertips to the elbow. She was worked up and it was reported to her that she had "strange blood work." She states that her "MARYA test came back speckled." Today, the pain is throughout her whole arm and includes her shoulder. She describes the pain as shooting and it starts at approximately her biceps and shoots down. Nothing makes the pain better. She states that she does have some amount of weakness in the left arm since the pain started. The pain has been constant for the last 2 days and has worsened in the last 24 hours, which brought her to the ER today. The patient states that she has experienced approximately 30 to 40 pounds of unintentional weight loss over the last 6 months; she denies fever, chills, sweats and night sweats. She also complains of swelling in both wrists and both ankles as well as the right leg. She complained that the tip of her tongue was purple for approximately 10 hours yesterday and it slowly started to recede. Today there is still discoloration of the tongue. She complains of abdominal pain with certain foods and attributes this to her cholecystectomy, stating that greasy foods tend to bother her more and she tries to avoid them. She complains of weakness in all extremities, particularly her right leg, which began in May. She also complains of pain from the right knee to the ankle as well as the left arm. Last menstrual period was June 29, 2018. Pt denies easy bleeding, bruising , gum or nose bleedes, IV drug use, rashes, fever, or chance of . In the ER, she received Decadron and Ketorolac. She had a cervical spine and head CT scan as well as a wrist x- ray. She also had blood work that revealed a very low platelet count of 8 and low white blood cell count of 2.6. ESR and CRP were both elevated. She had an appointment to see a traffic engineering director at the end of this month regarding her abnormal blood work from a month ago. At today' s visit, Dr. Gómez was consulted and the Hospitalist group was asked to evaluate for admission. PAST MEDICAL HISTORY: Gastroesophageal reflux disease. The patient stopped her omeprazole approximately 4 months ago. PAST SURGICAL HISTORY: Cholecystectomy in 2014; right carpal tunnel, 2009. HOME MEDICATIONS: Meloxicam 15 mg p.o. daily. The patient has been on this medication for approximately 1 month. ALLERGIES: No known drug allergies. FAMILY HISTORY: Negative for coronary artery disease or diabetes. Mother had thyroid cancer. Paternal and maternal grandmothers had intestinal cancer. SOCIAL HISTORY: The patient states that she quit smoking approximately 8 months ago and that she was a light smoker for approximately 4 years, smoking less than a pack a week. She occasionally drinks alcohol. She states she drinks approximately every 6 months. She states that she used to use marijuana , but does not use it anymore and does not use any other recreational drug. 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 She is not . She has one child, a 4-year-old son who she lives with. REVIEW OF SYSTEMS: A 10-point review of systems was performed and all the pertinent positives and negatives are in the HPI. All other systems are negative. PHYSICAL EXAMINATION GENERAL: Ms. Parikh is a well-developed, well-nourished, obese -[place] woman who is sitting up in bed in no acute distress. She is holding her left wrist. She appears her stated age. She is pleasant and cooperative. VITAL SIGNS: Temperature 97.0, pulse rate 92, oxygen saturation 100% on room air, blood pressure is 134/89. HEENT: Visual madden grossly intact. Pupils equally round and reactive to light and accommodation. Extraocular movements intact. Sclerae without icterus or conjunctival hemorrhage. Hearing grossly intact. Oral mucous membranes moist, without lesions or gingival bleeding. Borders of the first third of the tongue are speckled with petechiae. NECK: Full range of motion. Thyroid is nonpalpable. Trachea at midline. Posterior cervical lymphadenopathy is present. No other cervical lymphadenopathy noted. RESPIRATORY: Symmetrical chest expansion with no accessory muscle use. Lungs are clear to auscultation. No rhonchi, wheezing, or rubs. CARDIOVASCULAR: Regular rate and rhythm. S1, S2 are present. No murmurs, rubs , or gallops. No JVD. ABDOMEN: Bowel sounds normoactive throughout. Abdomen is soft and nontender to palpation. There is no hepatosplenomegaly. MUSCULOSKELETAL: Right arm licensed funeral director strength is 4/5. Left arm licensed funeral director strength is 5/ 5. There is slight swelling in both upper and lower extremities, nonpitting. The right arm is tender to palpation throughout. Radial and dorsalis pedis pulses 2+ bilaterally. NEUROLOGIC: A and O x3. Moves all extremities. Motor strength is 5/5 in upper and lower extremities bilaterally. Sensation is intact to light touch in all extremities. SKIN: Very small patches of slight petechiae to the right arm underneath blood pressure cuff. No other petechiae noted elsewhere on the body. Grossly intact without lesions. Skin is warm and moist. DIAGNOSTIC STUDIES/LAB DATA: CT of brain without, impression: No acute intracranial pathology. CT of cervical spine without, impression: 1. Straightening of the cervical lordosis. 2. Mild degenerative disk disease as described above without osseous neuroforaminal narrowing or central canal stenosis. 3. Multiple subcentimeter short axis lymph node of the upper neck without lymphadenopathy by size criteria. X-ray of the left wrist, impression: no acute osseous injury. If symptoms persist, recommend repeat imaging. WBC 2.6, RBC 4.21, Hgb 12.2, HCT 36, platelet count 8, MPV is 12.3, ESR 79. Sodium 136, potassium 3.5, chloride 105, carbon dioxide 26, BUN 17, creatinine 0.74, CRP 8.22. ASSESSMENT AND PLAN: Ms. Parikh is a 32-year-old female with a past medical history of gastroesophageal reflux disease who presented to the ER today with complaints of left upper extremity pain. The patient will be admitted observation for: 1. Thrombocytopenia, leukopenia. CT of chest, abdomen, and pelvis with contrast has been ordered to evaluate for the presence of further lymphadenopathy. MRI of the brain and neck with contrast ordered. The case has been discussed with Dr. Gómez and he will order a fine-needle aspiration of axillary lymph nodes as well as a bone biopsy. CBC and CMP ordered for the morning to evaluate platelet count. The patient has a rheumatology consult scheduled in the future, which she should keep. 2. Left upper extremity pain. Oxycodone/acetaminophen 5/325 order q4h prn pain 3. FEN. The patient is n.p.o. for her CT. She can resume regular diet thereafter. 4. Code status. The patient is full code. 5. DVT prophylaxis. The patient is moderate risk. We will forgo any sort of medication due to thrombocytopenia. The patient up with assist. DISPOSITION: Discharge once stable and testing is finished. TIME SPENT: Approximately 70 minutes were spent on this admission, greater than half of that time spent with the patient obtaining history, performing physical, and reviewing the plan of care. The case has been reviewed with my attending, Dr. Galindo, who is in agreement with the plan of care. MARIO ALBERTO PEREZ [id number]/[facility] #: [id number] KAYDEN
--- NOTE | 2018-07-08 15:32 | PROCNOTE ---
Hematology/Oncology Procedure Hematology/Oncology Procedure Note: Bone Marrow Biopsy and Aspirate: Procedure reviewed with patient including risks and benefits. Informed consent obtained. Time out performed per protocol. Anesthesia, 2% lidocaine, approx. 10 mLs administered with good effect. Bone marrow biopsy and aspirate performed without obvious complications. Pt. tolerate well. Minimal blood loss.
[2018-07-08] MEDS ORDERED: Iohexol 300* (CONTRAST) 10 ML SDV IV ONE (16:51)
[2018-07-08] MEDS ORDERED: Gadoteridol* (CONTRAST) 279.3 MG/ML 10 ML IV ONE (17:04)
[2018-07-09] MEDS: oxyCODONE/Acetamin 5/325 MG* TAB PO PRN ×5 (03:40→23:01)
--- NOTE | 2018-07-09 04:05 | CONS ---
CC: Dr. Luis Wong; Dr. Juan Gómez; Dr. Rajiv Goode * MEDICAL ONCOLOGY CONSULTATION: DATE OF CONSULT: 07/08/18 REASON FOR CONSULT: Thrombocytopenia and adenopathy. HISTORY OF PRESENT ILLNESS: Johanna Parikh is a 32-year-old female, who reports that her appetite has been down for several months and that she has lost weight recently in over the past 5 to 6 months, believes that she is down 50 to 60 pounds. She reports that about 6 weeks ago, she noted swelling of her legs, right greater than left, was seen by nurse practitioner at [facility] and at that time, laboratory studies were obtained, revealing increased inflammatory markers and positive MARYA. She was scheduled to see Dr. Goode of Rheumatology and has an appointment for late July. She has noticed an ankle edema, has increased somewhat recently. Approximately 2 days ago, she noticed some numbness in her left hand and then yesterday afternoon and evening noticed that the numbness had extended up her entire arm. She felt that she was also having some weakness in her left leg on standing over the past 24 hours. She reports some headache for approximately 1 week, which has been intermittent in the bifrontal region. She actually had to call her sister to pick remover her son and she felt the headaches were impairing her ability to drive yesterday. She has had headaches essentially every day over the past week, lasting up to 2-1/2 hours, yesterday with little improvement after Advil. She has not had any headaches today. She denies any speech or vision problems associated with this. Due to the increased numbness and weakness in the arm and the headaches, she presented to the emergency room. Once there, she had laboratory studies done, which revealed a total white count of 2600, H and H of 36/12.2, and a platelet count of 8000. Differential was essentially normal. Peripheral smear was reviewed by myself and pathology and other than showing decreased platelets without any clumping, did not show any significant other abnormalities. In addition, the patient has had some abdominal pain, but thinks that this is related to the food that she has taken in since her previous cholecystectomy. PAST MEDICAL HISTORY: Cholecystectomy, 2015; carpal tunnel surgery, 2010; history of GERD. MEDICATIONS: 1. Meloxicam 15 mg daily. 2. Previously had been on Celebrex. 3. Previously had been on omeprazole. ALLERGIES: None. FAMILY HISTORY: Mother of a sudden cardiac event at 54 with a previous history of thyroid cancer in her 30s. Father is 58, alive and well. Two siblings, alive and well. Maternal grandmother with small bowel cancer, dying at 64 and paternal grandmother with colon cancer, dying at 67. No other family history of malignancies. SOCIAL HISTORY: The patient lives with her 4-year-old son. She is not . 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 She smoked approximately less than a pack a day for 4 years and quit 8 months ago. Alcohol, rare. Did use marijuana in the past, but none for the last 6 weeks. Denies any other recreational drugs. REVIEW OF SYSTEMS: No significant bleeding or bruising issues, specifically no gum bleeds, nosebleeds, blood in her urine or stool. Neurologic symptoms as discussed above. No shortness of breath, chest pain, or palpitations. Arthritic complaints as discussed above. Does have some pain in right knee, in right ankle, and reports these are also swollen at times. Review of systems otherwise negative except as discussed above. PHYSICAL EXAM: A 32-year-old female, lying comfortably on the stretcher in the emergency room, in no acute distress. Vital Signs: Blood pressure 134/89, pulse 92, afebrile. HEENT: PERRL, EOMI. No erythema or exudates. No scleral icterus. There is shotty adenopathy in bilateral cervical regions and normal size occasional anterior cervical lymph nodes as well. 2-cm bilateral axillary adenopathy is noted. These nodes are nontender and are mobile. No inguinal adenopathy is noted. Heart: Regular rate and rhythm without murmurs, rubs, or gallops. Lungs: Clear. Abdomen: Soft, nontender without masses or organomegaly. The patient is obese and difficult to determine if there is any splenomegaly. No significant petechiae on the skin. Neurologic Exam: The patient is alert and oriented x3. Motor is 5/5 in both upper and lower extremities bilaterally with the exception of some slight decrease in handgrip on the left. There is no drift. Cranial nerves III through XII are intact. DIAGNOSTIC STUDIES/LAB DATA: CT scan of the brain without contrast with no significant findings. CT scan of the cervical spine with some mild degenerative disk disease and small lymph nodes noted anteriorly and posteriorly, but normal by size criteria. Laboratory studies: CBC as discussed above. Sedimentation rate 79, sodium 136 , potassium 3.5, chloride 105, bicarb 26, BUN 17, creatinine 0.74. CRP mildly elevated at 8.2. LFTs are normal. LDH is mildly elevated at 344 and uric acid is normal at 6.4. IMPRESSION AND PLAN: 1. A 32-year-old female, who presents with tingling, numbness, and weakness by her account along with some pain in the left arm along with reported weakness in her left leg and headaches. There are no significant focal neurologic deficits noted to my exam. However, at the same time, multiple other findings are noted included a marked decrease in her platelet count and mild decrease in her white count and an elevated LDH. On physical exam, the lymph nodes in the cervical region are shotty and normal size. There are more nodes present than normal and she has significant bilateral axillary adenopathy. This is concerning for malignant process specifically concerning for some type of hematologic malignancy such as lymphoma. Fine needle aspiration of axillary lymph nodes will be obtained later today by Dr. Carter. Bone marrow aspirate and biopsy will also be performed. I have asked the patient to have further imaging of the brain and cervical spine with contrast MRI to be sure that there are no lesions present that would cause focal deficits in the left arm. CT scan of the chest, abdomen, and pelvis will also be necessary to look for further adenopathy in other locations as well as looking for potential abnormalities in visceral organs. 2. Thrombocytopenia. The patient did receive a dose of Decadron from the emergency room physician in an attempt to alleviate some of her neurologic and pain symptoms. I have asked this not to be continued at the present time until the workup for potential malignancy is completed. If she would have a lymphoma , continued dosing of steroids may alter our ability to obtain an accurate diagnosis. If her platelets drop further or if she were to have any significant bleeding, then platelet transfusion at this time would be warranted. It is possible that she has an idiopathic thrombocytopenic purpura secondary to a bone marrow process in which case steroids and/or IVIG might be appropriate. It is also possible that her bone marrow is packed with cells producing the low platelet count without an immune process being present. 3. DVT prophylaxis. Thrombocytopenia is present. The patient is up and ambulatory. No peripheral access at the present time. 4. Weakness in the left arm. MRI scans as discussed above. If the weakness continues and/or worsens and there is no significant findings on the imaging as noted above, neurologic consultation would be appropriate. If the patient's platelet count were to be adequate, a lumbar puncture might also be useful. [id number]/[facility] #: [id number] MTDD
[2018-07-09 05:53] LABS: ABS Basophils 0.1 10^3/ul (0-0.2); ABS Eosinophils 0 10^3/ul (0-0.6); ABS Lymphocytes 0.8 10^3/ul (1.0-4.8); ABS Monocytes 0.5 10^3/ul (0-0.8); ABS Neutrophils 1.8 10^3/ul (1.5-7.7); ABS Nucleated RBC 0 10^3/ul; Eosinophil % 0.4 %; Hematocrit 36 % (35-47); Hemoglobin 12.4 g/dl (12.0-16.0); Lymphocyte % 24.1 %; Mean Corpuscular HGB Conc 35 g/dl (31-36); Mean Corpuscular Hemoglobin 30 pg (27-31); Mean Corpuscular Volume 85 fL (80-97); Mean Platelet Volume 10.7 fL (7.4-10.4); Nucleated Red Blood Cells % 0.2; Platelet Count 9 10^3/ul (150-450); Red Blood Count 4.19 10^6/ul (4.00-5.40); Red Cell Distribution Width 13 % (10.5-15); White Blood Count 3.2 10^3/ul (3.5-10.8)
[2018-07-09 06:01] LABS: Albumin 3.8 g/dL (3.2-5.2); Albumin/Globulin Ratio 0.8 (1-3); BUN/Creatinine Ratio 23.3 (8-20); Calcium 9.1 mg/dL (8.6-10.3); EGFR African American 111.1 (>60); EGFR Non-African American 91.8 (>60); Globulin 4.5 g/dL (2-4); Potassium 3.8 mmol/L (3.5-5.0); Total Bilirubin 0.4 mg/dL (0.2-1.0); Total Protein 8.3 g/dL (6.4-8.9)
--- NOTE | 2018-07-09 09:38 | PN ---
Progress Note - Progress Note Date of Service: 07/09/18 SOAP: Subjective: headaches better this am. when she has them they are bifrontal and associated with nausea and photophobia. hand numbness persists. pain medications helping with shooting pain up left arm and sensation of muscle tightness in left bicept. reports 20 lb weight loss in 6 months, unintentional. no significant night sweats or fevers. no diplopia. reports marked menorrhagia with last period (06/29-07/03) to the point where blood was "gushing out" of her without clotting. Objective: Vital Signs Temp Pulse Resp BP Pulse Ox 97.3 F 95 16 137/65 100 07/09/18 07:25 07/09/18 07:25 07/09/18 08:51 07/09/18 07:25 07/09/18 07:25 sitting up in nad perr eomi adentulous on upper CTA bl s1 s2 nl obese no obvious HSM no LE edema 2-3 cm adenopathy right axilla, shotty left, bilateral inguinal shotty adenopathy good strength throughout A+O x 3, globally nonfocal on my exam Laboratory Results - last 24 hr 07/08/18 07/08/18 07/09/18 09:30 09:30 05:17 WBC 2.6 L 3.2 L RBC 4.21 4.19 Hgb 12.2 12.4 Hct 36 36 MCV 86 85 MCH 29 30 MCHC 34 35 RDW 13 13 Plt Count 8 L* 9 L* MPV 12.3 H 10.7 H Neut % (Auto) 65.1 56.6 Lymph % (Auto) 21.2 24.1 Hardin % (Auto) 11.1 16.6 Eos % (Auto) 1.6 0.4 Baso % (Auto) 1.0 2.3 Absolute Neuts (auto) 1.7 1.8 Absolute Lymphs (auto) 0.5 L 0.8 L Absolute Monos (auto) 0.3 0.5 Absolute Eos (auto) 0 0 Absolute Basos (auto) 0 0.1 Absolute Nucleated RBC 0 0 Nucleated RBC % 0.1 0.2 ESR 79 H Hem Pathologist Commnt Sodium 136 Potassium 3.5 Chloride 105 Carbon Dioxide 26 Anion Gap 5 BUN 17 Creatinine 0.74 Est GFR ( Amer) 109.4 Est GFR (Non-Af Amer) 90.4 BUN/Creatinine Ratio 23.0 H Glucose 102 H Uric Acid 6.4 Calcium 9.1 Total Bilirubin 0.40 AST 27 ALT 26 Alkaline Phosphatase 76 Lactate Dehydrogenase 344 H C-Reactive Protein 8.22 H Total Protein 8.6 Albumin 4.1 Globulin 4.5 H Albumin/Globulin Ratio 0.9 L 07/09/18 05:17 WBC RBC Hgb Hct MCV MCH MCHC RDW Plt Count MPV Neut % (Auto) Lymph % (Auto) Hardin % (Auto) Eos % (Auto) Baso % (Auto) Absolute Neuts (auto) Absolute Lymphs (auto) Absolute Monos (auto) Absolute Eos (auto) Absolute Basos (auto) Absolute Nucleated RBC Nucleated RBC % ESR Hem Pathologist Commnt Sodium 135 Potassium 3.8 Chloride 105 Carbon Dioxide 23 Anion Gap 7 BUN 17 Creatinine 0.73 Est GFR ( Amer) 111.1 Est GFR (Non-Af Amer) 91.8 BUN/Creatinine Ratio 23.3 H Glucose 155 H Uric Acid Calcium 9.1 Total Bilirubin 0.40 AST 22 ALT 21 Alkaline Phosphatase 72 Lactate Dehydrogenase C-Reactive Protein Total Protein 8.3 Albumin 3.8 Globulin 4.5 H Albumin/Globulin Ratio 0.8 L Oxycodone/Acetaminophen (Percocet 5/325 Tab*) 1 tab PO Q4H PRN PRN Reason: PAIN Last Admin: 07/09/18 08:51 Dose: 1 tab Assessment: 32 yo F p/w weight loss, headaches, left arm dyasthesias, diffuse BOBO, and thrombocytopenia. Also note of a protein gap. This is certainly concerning for a malignancy such as a lymphoma. Infection is on the differential, however I feel this is less likely given that she does not appear toxic with this degree of adenopathy. bone marrow biopsy and FNA of axillary node are both pending. Given this I would like to hold off on any treatment as it could alter future diagnostic yield (if lymphoma steroids could muddy diagnosis very quickly). If there are megakaryocytes on bone marrow aspirate I will start IVIG for presumptive ITP (which may be lymphoma related). I have also asked neurology to weigh in on this difficult case, though we will not be able to pursue any diagnostic fluid sampling until her platelets are higher, which may require treatment of underlying cause and alter results. In terms of her protein gap, I will also check SPEP and UPEP, HIV and hepatitis panel (though notably negative in the past). We will hold off on DVT prophylaxis given severe thrombocytopenia.
[2018-07-09 09:44] LABS: Hepatitis B Surface Antigen Nonreactive (Nonreactive)
[2018-07-09 10:13] LABS: Hepatitis C Antibody Nonreactive (Nonreactive)
--- NOTE | 2018-07-09 18:15 | CONS ---
CC: Dr. Luis Wong * CONSULTATION REPORT: DATE OF CONSULT: 07/09/18 PRIMARY CARE PHYSICIAN: Dr. Luis Wong. REASON FOR CONSULT: Headache and left arm paresthesias. HISTORY OF PRESENT ILLNESS: Ms. Parikh is a very nice 32-year-old - Turkish female with a history of GERD and carpal tunnel syndrome on the right, status post repair, who presented to the ER yesterday with a history of headaches over the last month, as well as some left shoulder and arm pain for several days. However, she notes a history of both right and left shoulder pain dating back to at least gi if not before. She notes that she occasionally will get a numbness and tingling in her hands and feet. This typically occurs after she has had a big meal and notes swelling in her hands and feet. She also will occasionally get numbness and tingling that radiates up her left arm, at times into her shoulder. She notes contraction of her biceps at times, "feels like it is spasming," other times she notes pain in the muscles surrounding her neck that radiates down into her shoulder and in the upper left arm. These seem to happen intermittently and often times the pain is relieved with heat. She sometimes has difficulty finding a position in her bed that is comfortable. Typically, these are self-limited and will resolve slowly on their own. She denies any specific right arm numbness or tingling. She has recently been diagnosed with a speckled MARYA and was to see Dr. Goode for an evaluation. She has tried taking ibuprofen for the pains and nothing seems to make it better. She says the pains are dull and achy in nature. In addition, she reports a history of headaches over the last month. These headaches are bifrontal in nature. She describes them as sharp and throbbing at times. They are associated with photophobia and phonophobia, as well as some nausea, but no vomiting. She notes no triggers to these headaches and Advil seems to make them better. In general, they tend to last for 2-1/2 to 3 hours, but she had one earlier this month that lasted "all day." She typically will go into a dark room and sleep them off. She has no focal neurologic symptoms with the headaches. The arm pain that she experiences and paresthesias are not associated with the headaches. She has no prior history of headaches and there is no family history of migraine headaches. She knows of no triggers to these headaches. They are not associated with her periods. She has had approximately 6 of these headaches in the last month. Prior to that , she did not have headaches. She notes no vision changes with the headache. She notes no problem swallowing or speaking or facial droop with the headaches. She notes no autonomic symptoms with the headaches. She notes no recent head trauma or neck trauma. She denies any recent illnesses, fevers or chills. She has had no insect bites or animal bites. She has had no rashes, no fevers. She does report that the tip of her tongue turned purple at one point but is resolving. She is on meloxicam prescribed from her primary care doctor that she takes daily for her musculoskeletal symptoms. In the ER, she received Decadron and ketorolac. She had multiple imaging studies done (see below). She was noted to have a platelet count of 8000 with a white blood cell count of 2.6 and elevated ESR and CRP. Based on all of this, she was admitted to the hospital for further evaluation. This morning, she denies any headaches or any left arm symptoms. She notes no numbness or tingling in her hands or feet. She feels "pretty good" this morning. She does note a 30- to 50-pound weight loss in the last several months and she has not been trying to lose weight. She notes no sharp shooting pains in the back of her head. She does note some fatigue. She denies any night sweats. She does note having a heavy period earlier this month. She did have a bone marrow biopsy on this admission. Hematology is following her. There is concern for underlying malignancy. PAST MEDICAL HISTORY: Significant for gallbladder disease, status post cholecystectomy, as well as a carpal tunnel syndrome. PAST SURGICAL HISTORY: Cholecystectomy in 2015 and right carpal tunnel in 2010. MEDICATIONS: At home, meloxicam 15 mg daily for the last month. ALLERGIES: No known drug allergies. FAMILY HISTORY: No migraines, no strokes reported. No MIs reported. No diabetes. Her mother had thyroid cancer and she has both paternal and maternal grandparents with intestinal and colon cancer. SOCIAL HISTORY: She is a prior tobacco smoker, quit approximately 7 to 8 months ago. Prior to that, she was smoking about a pack a week. She is a social drinker and occasionally drinks alcohol, but not heavily. She has used a marijuana in the past, but no illicit substance use, no cocaine use recently. She has a 4-year-old son. She works at [employer]. REVIEW OF SYSTEMS: Her review of systems in 14-organ systems was done and as noted above, otherwise negative. PHYSICAL EXAM: Vital Signs: She has been afebrile. Current temperature is 97.3, respiratory rate of 16 to 18, pulse rates 75 to 95, O2 sat is 100% on room air, blood pressure 142/67 to 137/65. General: She is a well-nourished, well-developed tall female lying in her bed. She has some friends at the bedside. She is sitting up,well-dressed, well- groomed and very pleasant. HEENT: She is normocephalic, atraumatic. Sclerae are anicteric. Mucous membranes are moist. She has poor dentition. Neck is supple. There is no thyromegaly, carotid bruits or meningismus appreciated. No Kernig's or Brudzinski's sign. Her chest is clear to auscultation bilaterally. Cardiovascular: Regular rate and rhythm, without murmurs. Abdomen is obese, nontender. Extremities: There is no clubbing, cyanosis, or edema at this time. Her skin is warm and dry with several tattoos. Neurologic examination: She is awake, alert, and oriented x3. Her speech is fluent. There is no dysarthria. Repetition is intact. Recall of recent and remote events is intact. Vocabulary is intact. Her mood is euthymic. Affect is mood congruent. Cranial Nerves: Pupils are equally round and reactive to light and accommodation. Extraocular muscles are intact. Visual madden are full. Face is symmetric. Facial sensation is intact to light touch. Her palate raises symmetrically. Tongue is midline. Hearing is intact. Sternocleidomastoid and trapezius are 5/5. She has no papilledema on ophthalmic examination. She has no ptosis noted. No nystagmus noted. Motor exam spontaneously moving all extremities. Antigravity 5/5 throughout. Her tone and bulk are both normal. She has no atrophy noted. No APB atrophy in her hands bilaterally. Sensation is intact to light touch and pinprick in all 4 extremities. There is no focal deficit. DTRs are 2+ and symmetric at the biceps, triceps, brachioradialis, patella, 1+ at the ankles, withdrawal Babinski's bilaterally. Kztfgh-dr-kexo and rapid alternating movements are intact with a very subtle intention tremors bilaterally in the upper extremities. Qwtp-qv-esfo is intact. Her gait is normal with a good arm swing. She has a minimal sway with eyes open and closed. DIAGNOSTIC STUDIES/LAB DATA: Lab work includes a white count of 3.2 this morning, platelet count of 9, absolute lymphocytes of 0.8, ESR of 79. Her complete metabolic profile significant for a glucose of 155, BUN and creatinine ratio of 23.3, globulin of 4.5, CRP of 8.22, LDH was 344. She has had multiple imaging studies: 1. A brain CT, which showed no intracranial abnormalities. It looks normal. No sinus disease. No evidence of hydrocephalus. 2. Cervical spine CT. There is straightening of the cervical lordosis, mild degenerative disk disease, but no spinal cord compression or fractures noted. Lymph nodes are noted in the neck. 3. She had a wrist x-ray of the left wrist. No osseous injury. 4. She had a brain MRI. I did review the films and I reviewed the films with Dr. Vega, the radiologist. This is with and without contrast. There are no acute abnormalities. No meningeal enhancement. No ventriculomegaly. The MRI looks normal. She had an MRI of the cervical spine. 5. No abnormality. No significant disk disease or neuroforaminal narrowing. No spinal canal stenosis. Lymph nodes in the neck noted. 6. Chest, abdomen, and pelvis CT. Multiple bilateral axillary lymph nodes noted. No acute abdominal or pelvic abnormality. Multiple paraaortic lymph nodes measuring less than 1 cm in short axis. Bilateral inguinal and iliac lymph nodes, etiology can be infectious/inflammatory neoplastic. ASSESSMENT AND PLAN: Ms. Parikh is a 32-year-old female with a history of gastroesophageal reflux disease, prior carpal tunnel surgery on the right, and history of a cholecystectomy, no other significant medical history, who presented to the hospital yesterday with several-day history of left arm numbness and pain, reported left leg weakness, although she did not tell me that. History of headaches, which were bifrontal in nature, ongoing for the last month and intermittent. On evaluation, she was found to have a platelet count of 8, elevated CRP and ESR. She was admitted for additional workup. 1. Headache. She has no prior history of headache, but is well within the age range to develop migraine headaches. There are elements of these headaches that sound migrainous in nature, although they also have some tension type qualities as well. The headaches are associated with some nausea, some light and sound sensitivity, are intermittent in nature and generally relieved with Advil and rest. --My differential diagnosis includes tension type headache versus migraines possibly triggered by her ongoing neck pain. She has no autonomic symptoms and my suspicion for autonomic type headaches such as primary stabbing headaches or cluster headaches is low. Her headaches do not present with a typical trigeminal neuralgia pattern, my suspicion is low. There is a possibility of an underlying process that might be causing increased intracranial pressures such as infection or inflammatory condition or possibly malignancy like carcinomatosis. Her MRI looked normal, although this does not rule out carcinomatosis. She has no cranial nerve findings which can typically be seen with carcinomatosis. --I would proceed with a lumbar puncture as soon as she is able and her platelet count has improved. Pseudotumor given her age and size is a consideration as well. During the lumbar puncture, she will need an opening and closing pressure. Given the fact that she may have an underlying malignancy and could be hypercoagulable, venous sinus thrombosis or cavernous sinus disease is a possibility. I am going to get an MRA and MRV of her head. Aneurysm is within the differential as well, although the presentation is atypical. --Overall, I suspect that her headaches are musculoskeletal/tension type in nature with migrainous component. I would not treat prophylactically at this point as she has only had 6 headaches in the last month and they typically resolve with ibuprofen but with a platelet count of 8 she will want to avoid NSAIDs and instead use Tylenol or muscle relaxants if she develops another headache. Should the nature of her headaches change, we would reconsider treatment, but for now I would hold on prophylactic treatment. I would like to see her back in my clinic for ongoing evaluation and once the LP is done, and review those results as well. My suspicion that this is related to some underlying malignancy is low, but I cannot rule it out completely. Please arrange for follow up in my clinic upon discharge. 2. Arm pain, paresthesias. Upon further questioning, she reports that she has been having paresthesias and pain in both her left and right shoulder. This has been ongoing since or before and she has actually seen her primary care physician several times for this. She was given meloxicam which she has been using daily. There is no particular radicular component to her symptoms. He pain generally involves the entire left arm in a circumferential pattern. It can originate in the left wrist and radiate upwards and it can originate in the neck and radiate downwards. She has applied heat to her neck and shoulders and that seems to relieve the pain. --Differential includes musculoskeletal pain. I would consider physical therapy for that. There is no evidence on imaging of any spinal stenosis or neural foraminal narrowing. My suspicion for a nerve compression is very low. With that said, there is a possibility she could have brachial plexus involvement either from mass effect or from something like Parson[place]-Moseley syndrome. Carpel tunnel syndrome can, at times, cause pain radiating up the arm but I would expect a more dermatomal distribution. There is no evidence for demyelinating disease. For now I would continue to monitor her symptoms. If she starts to develop significant weakness, muscle atrophy, fasciculations, or the pain worsens in nature and is not responsive to physical therapy and medications, I would consider additional imaging as noted. If the nature of her symptoms changes, please contact me prior to her follow up and I will expedite outpatient workup including MRI and EMG/NCS. 3. Carpal tunnel syndrome. She does have a history of carpal tunnel syndrome on the right but she has intermittent symptoms on the left that seem to be worse when she has swelling. This is certainly consistent with underlying carpal tunnel, but given the distribution of her symptoms when they are present , I do not think the carpal tunnel could explain all of the symptoms. We could consider further evaluation with nerve conduction study, EMG as an outpatient to better evaluate both her possible carpal tunnel as well as arm pain. She also reports some history of bilateral feet numbness and tingling at times when she is swollen. I suspect that this may be related to some compressive neuropathy as well with swelling in the ankles and feet. Again, this is intermittent in nature. It is not overtly painful. We can continue to follow this and consider an EMG/nerve conduction study. I am going to check some basic lab work including B12, folate, TSH, free T4, methylmalonic acid to look for any possible causes of neuropathy. I will continue to follow her as an outpatient for now. Thank you for the opportunity to participate in her care. Will sign off for now but plan to see her as an outpatient. [id number]/[facility] #: [id number] Addendum: DARLIN/DAREN MONIQUE
[2018-07-09 22:23] LABS: TSH (Thyroid Stimulating Horm) 3.59 mcIU/mL (0.34-5.60)
[2018-07-09 22:25] LABS: Free T4 0.85 ng/dL (0.61-1.12)
[2018-07-09 22:34] LABS: Folate 10.52 ng/mL (>3.99)
[2018-07-10] MEDS: oxyCODONE/Acetamin 5/325 MG* TAB PO PRN ×3 (03:40→12:39)
[2018-07-10 06:47] LABS: ABS Basophils 0 10^3/ul (0-0.2); ABS Eosinophils 0 10^3/ul (0-0.6); ABS Lymphocytes 0.9 10^3/ul (1.0-4.8); ABS Monocytes 0.3 10^3/ul (0-0.8); ABS Neutrophils 1.7 10^3/ul (1.5-7.7); ABS Nucleated RBC 0 10^3/ul; Eosinophil % 1.6 %; Hematocrit 33 % (35-47); Hemoglobin 11.5 g/dl (12.0-16.0); Lymphocyte % 30.7 %; Mean Corpuscular HGB Conc 35 g/dl (31-36); Mean Corpuscular Hemoglobin 30 pg (27-31); Mean Corpuscular Volume 85 fL (80-97); Mean Platelet Volume 10.2 fL (7.4-10.4); Nucleated Red Blood Cells % 0.1; Platelet Count 10 10^3/ul (150-450); Red Cell Distribution Width 13 % (10.5-15)
[2018-07-10 06:59] LABS: Albumin 3.4 g/dL (3.2-5.2); Albumin/Globulin Ratio 0.7 (1-3); BUN/Creatinine Ratio 21.5 (8-20); Calcium 8.8 mg/dL (8.6-10.3); Globulin 4.8 g/dL (2-4); Potassium 3.7 mmol/L (3.5-5.0); Total Bilirubin 0.4 mg/dL (0.2-1.0); Total Protein 8.2 g/dL (6.4-8.9)
[2018-07-10 08:06] VITALS: BP 142/77
[2018-07-10 09:35] LABS: Ferritin 150.5 ng/mL (11-307)
--- NOTE | 2018-07-10 11:18 | CONSULT ---
Consult Consult: Asked by Dr. Patel to see patient for axillary lymph node excisional biopsy FNA X2 right axillary node non-diagnostic Chart reviewed and pt examined-CT reviewed Left and Right axilla with palpable discrete movable nodes that are non-tender. No redness or fluctuance Will plan open exisional biopsy of left axillary node on Friday07/13/18. To receive platelets pre-operatively per Dr. Patel. Procedure discussed with patient and risks explained.
[2018-07-10] MEDS ORDERED: Buffered Lidocaine 1% SYRIN* 1 ML/SYRINGE INTRADERM ONE (14:39)
[2018-07-10 15:16] LABS: Urine TP Concentration 29 mg/dL
[2018-07-10 17:37] LABS: Kappa Free Light Chain 7.5 mg/dL; Lambda Free Light Chain 3.69 mg/dL
--- NOTE | 2018-07-10 17:56 | PN ---
Progress Note - Progress Note Date of Service: 07/10/18 SOAP: Subjective: []Doing well today. No numbness in arms, eating well. No bruising or bleeding. Lactated Ringer's (Lactated Ringers 1000 Ml Bag*) 1,000 mls @ 125 mls/hr IV PER RATE YVONNE Oxycodone/Acetaminophen (Percocet 5/325 Tab*) 1 tab PO Q4H PRN PRN Reason: PAIN Last Admin: 07/10/18 12:39 Dose: 1 tab Objective: [] Vital Signs Temp Pulse Resp BP Pulse Ox 98.4 F 85 14 142/77 99 07/10/18 07:20 07/10/18 07:20 07/10/18 16:21 07/10/18 07:20 07/10/18 07:20 sitting up in nad perr eomi adentulous on upper CTA bl s1 s2 nl obese no obvious HSM no LE edema 2-3 cm adenopathy right axilla, shotty left, bilateral inguinal shotty adenopathy good strength throughout A+O x 3, globally nonfocal on my exam Oxycodone/Acetaminophen (Percocet 5/325 Tab*) 1 tab PO Q4H PRN PRN Reason: PAIN Last Admin: 07/09/18 08:51 Dose: 1 tab BmBx: aspirate negative, core inadequate LN: cytology negative, flow with non-descript population of B cells. Assessment: 32 yo F p/w weight loss, headaches, left arm dyasthesias, diffuse BOBO, and thrombocytopenia. Also note of a protein gap. This is certainly concerning for a malignancy such as a lymphoma. T cell lymphoma and marginal zone both possible, Platelets stable today and no bleeding. 1.discharge home 2. LN Bx Friday am w/plts 3. f/u Dr Gómez Friday 4. Call for bleeding or bruising
[2018-07-10 18:25] LABS: Urine Kappa Total Light Chain 23.5 mg/dL (<0.9000); Urine Kappa/Lambda Light Chain 2.45
--- NOTE | 2018-07-11 00:32 | DS ---
DISCHARGE SUMMARY: DATE OF ADMISSION: 07/08/18 DATE OF DISCHARGE: 07/10/18 DISCHARGE DIAGNOSES: 1. Thrombocytopenia. 2. Weight loss. 3. Tension headaches. 4. Question of lymphoma or neurologic disease. HOSPITAL COURSE: Please see the detailed history and physical for details of presentation. After admission, she had CT scan of the chest; abdomen; and pelvis, MRI of the C-spine, and CT of the C-spine. Imaging showed bilateral axillary lymphadenopathy to 1.5 cm, inguinal lymphadenopathy as well as small 1 cm anterior cervical lymphadenopathy. No acute structural disease in the vertebral bodies or spine to account for neurologic symptoms. She had a brain MRI that was negative. Consultation by Neurology thought that this is most likely tension headaches and peripheral neuropathy associated with carpal tunnel and edema. We did a bone marrow biopsy and a fine needle aspiration of the axillary node. The bone marrow biopsy had an inadequate core, but the aspirate was negative. On lymph node aspiration, she had normal-appearing cells , no clear malignant population. Flow cytometry did show a nondescript B-cell cell population that was CD19 positive, CD5, 3, and 10 negative. Platelets remained stable during the hospitalization to slightly improved; they are 10, 000 today. She had not had any bleeding or bruising during her hospital stay and she has not been febrile. Case discussed today with Dr. Wilson and all pathology reviewed in person. She needs a lymph node excision before we will have a diagnosis. She has surgery planned for early Friday morning. Blood Bank has been contacted and 2 units platelets will be available. We will transfuse 1 unit of platelets on presentation and have 1 available for any complications during surgery. Given that she is stable, we will let her go home with the platelet count today and follow up Friday morning for surgery. Followup will be Friday for the lymph node excision, she will see Dr. Gómez by the end of next week to follow up on the results. MEDICATIONS ON DISCHARGE: Oxycodone 5 mg q.4 p.r.n. Do not take Mobic or any nonsteroidal antiinflammatories. She will call us with any episodes of bleeding, epistaxis, excess bruising. [id number]/[facility] #: [id number] [facility]. [facility] HOSPITALPuneet
[2018-07-11 16:26] LABS: Albumin 3.3 g/dL (3.4-4.7); Albumin/Globulin Ratio 0.61; Gamma Globulin 3.4 g/dL (0.6-1.6); Total Protein(PEP) 8.7 g/dL (6.3 - 7.9)
[2018-07-11 18:27] LABS: Albumin 26 %; Albumin/Globulin Ratio 0.36 %; Gamma Globulin 34 %; Total Protein(PEP) Urine 88 mg/dL
[2018-07-13] MEDS ORDERED: Lactated Ringers 1000 ML Bag* 1,000 ML IV SCH (06:00)
[2018-07-13 09:00] LABS: Immunoglobulin A 518 mg/dL (61 - 356); Immunoglobulin G 3810 mg/dL (767 - 1590); Immunoglobulin M 111 mg/dL (37 - 286)
[2018-07-15 19:49] LABS: BM Result Summary Normal
== END 2018-07-10 19:00 | disposition home or self-care (01) | DRG 651 ==
LOC: ED 08:24 → MED 12:13 → OBSVTOIN 07-09 12:54
PROVIDERS: ADMIT Internal Medicine; ATTEND Internal Medicine Hematology & Oncology
PROC: 07DR3ZX Extraction of Iliac Bone Marrow, Percutaneous Approach, Diagnostic (ICD-10-PCS; principal; 2018-07-08)
PROC: 07B53ZX Excision of Right Axillary Lymphatic, Percutaneous Approach, Diagnostic (ICD-10-PCS; 2018-07-10)
DX: D69.6 Thrombocytopenia, unspecified (principal); K21.9 Gastro-esophageal reflux disease without esophagitis; E66.9 Obesity, unspecified; D72.819 Decreased white blood cell count, unspecified; R40.2362 Coma scale, best motor response, obeys commands, at arrival to emergency department; G62.9 Polyneuropathy, unspecified; R40.2142 Coma scale, eyes open, spontaneous, at arrival to emergency department; R40.2252 Coma scale, best verbal response, oriented, at arrival to emergency department; Z90.49 Acquired absence of other specified parts of digestive tract; Z87.891 Personal history of nicotine dependence; Z72.89 Other problems related to lifestyle; Z80.0 Family history of malignant neoplasm of digestive organs; Z68.34 Body mass index [BMI] 34.0-34.9, adult; G44.209 Tension-type headache, unspecified, not intractable; R63.4 Abnormal weight loss; M40.40 Postural lordosis, site unspecified; M47.892 Other spondylosis, cervical region; Z82.49 Family history of ischemic heart disease and other diseases of the circulatory system; G56.01 Carpal tunnel syndrome, right upper limb; H53.149 Visual discomfort, unspecified
CPT/HCPCS: 10021; 36415; 70450; 70544; 70553; 71260; 72125; 72156; 74177; 80053; 80074; 81479; 82607; 82728; 82746; 82784; 83615; 83883; 83921; 84155; 84156; 84165; 84166; 84439; 84443; 84550; 85025; 85060; 85097; 85652; 85810; 86140; 87389; 88172; 88173; 88184; 88187; 88188; 88189; 88237; 88305; 88311; 88313; 99232; 99233; 99284; A9270-GY; A9579; G0378; G0475; J1100; J1885; Q9967

== ENCOUNTER 2018-07-13 06:19 | Day surgery (SDC) | payer OTHER ==
[2018-07-13 07:57] LABS: ABS Basophils 0 10^3/ul (0-0.2); ABS Eosinophils 0.1 10^3/ul (0-0.6); ABS Lymphocytes 0.6 10^3/ul (1.0-4.8); ABS Monocytes 0.4 10^3/ul (0-0.8); ABS Neutrophils 3.5 10^3/ul (1.5-7.7); ABS Nucleated RBC 0 10^3/ul; Eosinophil % 1.3 %; Hematocrit 36 % (35-47); Hemoglobin 12.3 g/dl (12.0-16.0); Lymphocyte % 13.1 %; Mean Corpuscular HGB Conc 35 g/dl (31-36); Mean Corpuscular Hemoglobin 29 pg (27-31); Mean Corpuscular Volume 85 fL (80-97); Mean Platelet Volume 12.2 fL (7.4-10.4); Nucleated Red Blood Cells % 0; Platelet Count 6 10^3/ul (150-450); Red Blood Count 4.19 10^6/ul (4.00-5.40); Red Cell Distribution Width 13 % (10.5-15); White Blood Count 4.5 10^3/ul (3.5-10.8)
[2018-07-13] MEDS ORDERED: Propofol* 10 MG/ML 20 ML BTL ONE (08:12)
[2018-07-13] MEDS ORDERED: Lidocaine 2% PF * 5 ML VIAL ONE (08:12)
[2018-07-13] MEDS ORDERED: fentaNYL* 50 MCG/ML 2 ML VIAL (100 MCG VIAL) ONE ×2 (08:13→11:08)
[2018-07-13] MEDS ORDERED: Midazolam* 1 MG/ML 2 ML VIAL (2 MG) ONE (08:13)
[2018-07-13] MEDS ORDERED: Naloxone* 0.4 MG/ML 1 ML VIAL IV PRN (08:20)
[2018-07-13] MEDS ORDERED: fentaNYL* 50 MCG/ML 2 ML VIAL (100 MCG VIAL) IV PRN (08:20)
[2018-07-13] MEDS ORDERED: diPHENhydraMINE IV* 50 MG/ML 1 ml VIAL (BENADRYL) IV PRN (08:20)
[2018-07-13] MEDS ORDERED: oxyCODONE TAB* 5 MG TAB PO PRN (08:20)
[2018-07-13] MEDS ORDERED: Acetaminophen TAB* 325 MG PO PRN (08:20)
[2018-07-13] MEDS ORDERED: Bupivacaine 0.25% SDV PF* 10 ML VIAL INJ ONE (09:42)
[2018-07-13] MEDS ORDERED: ceFAZolin 2 GM PREMIX in ORs 2 GM/50 ML BAG IVPB ONE (09:52)
[2018-07-13] MEDS ORDERED: hydrALAZINE IV* 20 MG/ML VIAL ONE (09:58)
[2018-07-13] MEDS ORDERED: Labetalol IV* 5 MG/ML 20 ML VIAL IV PUSH ONE (11:00)
--- NOTE | 2018-07-13 11:04 | OP ---
Operative Report - Blank - Operative Report Date of Operation: 07/13/18 Note: Brief Operative Note Preop Dx: Axillary lymphadenopathy and thrombocytopenia Postop Dx: same Procedure: excision Left axillary lymphadenopathy Anesthesia: GET Surgeon: Melo Lighting Adviser: DEANA Siddiqi Fluids: 500 ml LR EBL: 10 ml Specimen: Left axillary LN Drains: none Findings: dictated
[2018-07-13] MEDS ORDERED: DiMENhydriNATE IV* 50 MG/ML VIAL ONE (12:23)
--- NOTE | 2018-07-13 13:08 | OP ---
CC: Dr. Patel OPERATIVE REPORT: DATE OF OPERATION: 07/13/18 DATE OF : 83 SURGEON: Yinka Alejo MD. PRE-OP DIAGNOSIS: Adenopathy. POST-OP DIAGNOSIS: Adenopathy. OPERATIVE PROCEDURE: Left axillary node excision dissection. INDICATIONS FOR PROCEDURE: Concern for lymphoma in a patient with adenopathy. Risks of surgery inclu de, but were not limited to bleeding and infection were explained to the patient. He seemed to under stand and agreed to the procedure and all questions were answered. DESCRIPTION OF PROCEDURE: The patient was taken to the operating room and placed supine. Preoperati ve antibiotics were given. After the successful induction of general anesthesia through laryngeal ma sk airway, the left arm was gently extended. The axilla was prepped and draped in sterile fashion. S dmitry was anesthetized with plain Marcaine after a time-out was performed, identifying the correct eryn ent, correct side, and correct procedure. Incision was made and carried down through the subcutaneou s tissue and the axillary space was entered where palpable firm nodes were easily noted. One to two nodes were taken en adrianna in a palpable bundle. The nodes appeared dark. These were taken using Bov ie cautery. They were sent fresh to pathology as requested. The axilla was irrigated. Hemostasis w as intact. EBL was minimal, less than 3 mL. No further Bovie cautery was required. The wound was cl osed in layers using 3-0 Vicryl and 3-0 Monocryl on the skin. Glue was applied. She tolerated the p rocedure well. She was taken to the recovery room in stable condition. [id number]/[facility] #: [id number]
[2018-07-13 13:22] VITALS: BP 127/85
== END 2018-07-13 13:24 | disposition home or self-care (01) ==
LOC: OR 06:19
PROVIDERS: ATTEND Surgery
DX: R59.0 Localized enlarged lymph nodes (principal); D69.6 Thrombocytopenia, unspecified; R63.4 Abnormal weight loss; R03.0 Elevated blood-pressure reading, without diagnosis of hypertension; R20.2 Paresthesia of skin
CPT/HCPCS: 36415; 81025; 81261; 81264; 85025; 86850; 86900; 86901; 88184; 88187; 88188; 88189; 88305; 88333; 88341; 88342; 88360; J0360; J0690; J1240; J2250; J2704; J3010; J3490; P9035

== ENCOUNTER 2018-07-16 14:29 | Emergency (ER) | payer OTHER ==
--- NOTE | 2018-07-16 14:54 | ED ---
Skin Complaint - HPI Summary HPI Summary: Patient is a 32 y/o F with recent dx of thrombocytopenia, presenting to ED with complaints of bleeding, ecchymosis, and swelling under her left arm after having a lymph node biopsy on 07/13/18. She reports that her left hand has been going numb intermittently. Bruise has extended down under her left breast and her left upper back. The wound is closed with adsorbable sutures and glue. Patient found blood on the dressing when she changed it, and when she used an ice pack to decrease swelling, she found bright red blood on the ice pack. She called the surgery office, and it was recommended that the patient come to the ED. Patient reports no bleeding elsewhere, i.e. no blood in bowel movements, slight red tinge to urine, no nose bleeds, and she states that she typically bleeds when she brushes her teeth and it is no worse. No recent trauma reported. No other medical conditions noted, Dr. Wong is her PCP. PSHx of cholecsytectomy, right hand carpal tunnel surgery, cyst removal from neck. No FMHx of blood disorders is reported. Patient had platelet infusion on 07/13/18 prior to the surgery as well. On triage, pain is rated 6/10. Nothing is noted to aggravate/alleviate Sx. Home medications and allergies are reviewed. Allergies Allergy/AdvReac Type Severity Reaction Status Date / Time No Known Allergies Allergy Verified 07/16/18 14:35 - History of Current Complaint Chief Complaint: EDBleedingDisorder Time Seen by Provider: 07/16/18 14:46 Stated Complaint: POST OP COMPLICATIONS Hx Obtained From: Patient, Other: - Dr. Patel Onset/Duration: Atraumatic, Still Present, Worse Since - 07/13/18 surgery Skin Exposure Onset/Duration: Days Ago, Worse Since: - 07/13/18 surgery Timing: Constant Onset Severity: Moderate Current Severity: Moderate - 6/10 Pain Intensity: 6 Pain Scale Used: 0-10 Numeric - 6/10 Skin Location: Arm - under left arm with expansion to under left breast and left back Character: Swelling, Pain, Painful Aggravating Symptom(s): Nothing Alleviating Symptom(s): Nothing Associated Signs & Symptoms: Numbness - left hand, Bruising - enlarging since surg 07/13/18 Related History: Other: - lymph node biopsy on 07/13/18 - Additional Pertinent History Primary Care Physician: [id number] - Allergy/Home Medications Allergies/Adverse Reactions: Allergies Allergy/AdvReac Type Severity Reaction Status Date / Time No Known Allergies Allergy Verified 07/16/18 14:35 PMH/Surg Hx/FS Hx/Imm Hx Endocrine/Hematology History: Denies: Hx Diabetes Cardiovascular History: Denies: Hx Hypertension, Hx Pacemaker/ICD GI History: Reports: Hx Gastroesophageal Reflux Disease - ON DAILY OMEPRAZOLE History: Denies: Hx Renal Disease Sensory History: Reports: Hx Contacts or Glasses Denies: Hx Hearing Aid Opthamlomology History: Reports: Hx Contacts or Glasses Psychiatric History: Denies: Hx Panic Disorder - Cancer History Cancer Type, Location and Year: none - Surgical History Surgery Procedure, Year, and Place: CHOLECYSTECTOMY. RIGHT CARPAL TUNNEL REPAIR. LEFT AXILLARY LYMPH NODE BIOPSY JUNE 2018 Hx Anesthesia Reactions: No Infectious Disease History: No Infectious Disease History: Denies: Hx Clostridium Difficile, Hx Hepatitis, Hx Human Immunodeficiency Virus (HIV), Hx of Known/Suspected MRSA, Hx Shingles, Hx Tuberculosis, Hx Known/ Suspected VRE, Hx Known/Suspected VRSA, History Other Infectious Disease, Traveled Outside the [place] in Last 30 Days - Family History Known Family History: Positive: Other - Negative: DVT Negative: Cardiac Disease, Blood Disorder Family History: Family history of various cancers. - Social History Alcohol Use: None Hx Substance Use: No Substance Use Type: Reports: None Hx Tobacco Use: Yes Smoking Status (MU): Former Smoker Have You Smoked in the Last Year: No Review of Systems Positive: Other - NEGATIVE - RECENT TRAUMA Eyes: Negative Negative: Epistaxis Cardiovascular: Negative Respiratory: Negative Gastrointestinal: Negative Positive: other - NEGATIVE - BLOOD IN STOOL; POSITIVE - RED TINGE TO URINE Positive: Edema - UNDER LEFT ARM, Other - POSITIVE - BLEEDING, ECCHYMOSIS UNDER LEFT ARM TO LEFT BACK AND UNDER LEFT BREAST Positive: Bruising - worsening, extending to left breast and left posterior upper back Positive: Numbness - LEFT HAND Psychological: Normal All Other Systems Reviewed And Are Negative: Yes Physical Exam - Summary Physical Exam Summary: Appearance: Well-appearing, minimal pain distress, well-nourished Skin: Warm, color reflects adequate perfusion, dry; large ecchymosis at left axilla to left breast and left back, surgical area is dry, intact with glue over sutures. Head: Normal Head/Face inspection, atraumatic Eyes: Conjunctiva clear, ENT: Normal inspection Neck: Supple, no nodes, no JVD Respiratory: Lungs clear, normal breath sounds, no respiratory distress Cardio: RRR, No murmur, pulses normal, brisk capillary refill Abdomen: Soft, nontender Bowel sounds: Present Musculoskeletal: Strength Intact/ROM intact, no calf tenderness, no edema. Psychological: Normal Neuro: Alert, muscle tone normal, no focal deficit Triage Information Reviewed: Yes Vital Signs On Initial Exam: Initial Vitals Temp Pulse Resp BP Pulse Ox 99 F 108 16 173/116 100 07/16/18 14:32 07/16/18 14:32 07/16/18 14:32 07/16/18 14:32 07/16/18 14:32 Vital Signs Reviewed: Yes Diagnostics - Vital Signs Vital Signs Temp Pulse Resp BP Pulse Ox 07/16/18 14:32 99 F 108 16 173/116 100 - Laboratory Result Diagrams: 07/16/18 14:59 07/16/18 14:59 Lab Statement: Any lab studies that have been ordered have been reviewed, and results considered in the medical decision making process. Re-Evaluation - Re-Evaluation First Eval Re-Evaluation Time: 17:11 Change: Improved Comment: Discussed Dr. Patel consult, and patient is agreeable with discharge and follow up with Dr. Gómez. No further bleeding while in ED. Course/Dx - Course Course Of Treatment: Patient is a 32 y/o F presenting to ED with complaints of bleeding, ecchymosis, and swelling under her left arm after having a lymph biopsy on 07/13/18. She reports that left hand has been going numb intermittently. Bruise has extended down under left breast and left back, wound is closed with adsorbable stitches and glue. Patient found blood on dressing, used ice pack to decreased swelling, found bright red blood on ice pack. She called surgery, it was recommended that patient coming to ED. Patient reports no blood in bowel movement, slight red tinge to urine, no nose bleeds, states that she typically bleeds when she brushes her teeth. No recent trauma reported. No other medical conditions noted, Dr. Wong is PCP. PSHx of cholecsytectomy, right hand carpal tunnel surgery, cyst removal from neck. No FMHx of blood disorders is reported. Patient had platelet infusion on 07/13/18 as well. On physical exam, large ecchymosis at left axilla to left breast and left back, surgical area is dry, intact with glue over sutures. Labs showed RBC 3.92, Hgb 11.4, Hct 34, Plt count 12, absolute lymphs 0.6, INR 1.06, BUN/ creatinine 20.6, total protein 9.2, globulin 5.1, albumin/globulin ratio 0.8. Patient's case was discussed with Dr. Jones at 164, he states that there does not appear to be any need to see the patient from a surgical standpoint and that any imaging is needed. He recommends Dr. Gómez consult. 1658 - Dr. Gómez was consulted on patient's case, patient will be seen by Dr. Gómez tomorrow at [address]. Discuss[address] Gómez consult, patient is agreeable with discharge and Dr. Gómez consult. No further bleeding while in ED. - Differential Diagnoses - Skin Complaint Differential Diagnoses: Abscess, Endocrine Abnormality, Lymphadenitis, Systemic Illness, Tick Born Illness - Diagnoses Provider Diagnoses: History of surgical biopsy, Thrombocytopenia, Post-op bleeding - Physician Notifications Discussed Care Of Patient With: Jose Antonio Jones Time Discussed With Above Provider: 16:41 Instructed by Provider To: Other - Patient's case was discussed with Dr. Jones at 164, he states that there does not appear to be any need to see the patient from a surgical standpoint at this time and that no imaging is needed at this time. He recommends Dr. Gómez consult. 1658 - Dr. Patel (charge account identification clerk) was consulted on patient's case, patient will be seen by Dr. Gómez tomorrow at 1300. Discharge - Sign-Out/Discharge Documenting (check all that apply): Patient Departure - discharge - Discharge Plan Condition: Stable Disposition: HOME Patient Education Materials: Thrombocytopenia (ED) Referrals: Juan Gómez MD [Medical Doctor] - 1 Day Yinka Alejo MD [Medical Doctor] - If Needed Luis Wong MD [Primary Care Provider] - If Needed Additional Instructions: We talked to both Dr. Jones and Dr. Patel, charge account identification clerk for your doctors, Dr. Alejo and Dr. Gómez. Both doctors did not feel there was anything alarming about your increased bruising and small amount of bleeding that you noted. Your CBC today showed an platelet count that has increased from 6 thousand to 12 thousand , and your hemoglobin has not dropped significantly (meaning not a large amount of bleeding.) Your hemoglobin was 12.3 on 07/13/18 and it is 11.[address] Gómez will see you in the office tomorrow at 1:00pm, and should be able to talk with you about the pathology report on your lymph node, and they will also repeat a CBC on you to check your counts again tomorrow. You may continue to use ice at the site of the incision and the bruising for your comfort. Return to the ER if you have any new or worsening symptoms. - Billing Disposition and Condition Condition: STABLE Disposition: Home - Attestation Statements Document Initiated by Konstantin: Yes Documenting Scribe: CHRISTIANO DOUGLAS Provider For Whom Konstantin is Documenting (Include Credential): NAIF ROGERS MD Scribe Attestation: CHRISTIANO Sadler scribed for NAIF ROGERS MD on 07/20/18 at 0117. Scribe Documentation Reviewed: Yes Provider Attestation: The documentation as recorded by the CHRISTIANO wynn accurately reflects the service I personally performed and the decisions made by me, NAIF ROGERS MD Status of Konstantin Document: Viewed
[2018-07-16 16:07] LABS: INR 1.06 (0.77-1.02)
[2018-07-16 16:18] LABS: Albumin 4.1 g/dL (3.2-5.2); Albumin/Globulin Ratio 0.8 (1-3); BUN/Creatinine Ratio 20.6 (8-20); Calcium 9.4 mg/dL (8.6-10.3); EGFR African American 131.7 (>60); EGFR Non-African American 108.8 (>60); Globulin 5.1 g/dL (2-4); Total Bilirubin 0.4 mg/dL (0.2-1.0); Total Protein 9.2 g/dL (6.4-8.9)
[2018-07-16 16:26] LABS: ABS Basophils 0 10^3/ul (0-0.2); ABS Eosinophils 0 10^3/ul (0-0.6); ABS Lymphocytes 0.6 10^3/ul (1.0-4.8); ABS Monocytes 0.4 10^3/ul (0-0.8); ABS Neutrophils 2.5 10^3/ul (1.5-7.7); ABS Nucleated RBC 0 10^3/ul; Eosinophil % 1.3 %; Hematocrit 34 % (35-47); Hemoglobin 11.4 g/dl (12.0-16.0); Lymphocyte % 17.6 %; Mean Corpuscular HGB Conc 34 g/dl (31-36); Mean Corpuscular Hemoglobin 29 pg (27-31); Mean Corpuscular Volume 86 fL (80-97); Mean Platelet Volume 10.1 fL (7.4-10.4); Nucleated Red Blood Cells % 0.1; Platelet Count 12 10^3/ul (150-450); Red Blood Count 3.92 10^6/ul (4.00-5.40); Red Cell Distribution Width 13 % (10.5-15); White Blood Count 3.7 10^3/ul (3.5-10.8)
[2018-07-16 17:35] VITALS: BP 131/99
== END 2018-07-16 17:34 | disposition home or self-care (01) ==
LOC: ED 14:29
DX: D69.6 Thrombocytopenia, unspecified (principal); L76.22 Postprocedural hemorrhage of skin and subcutaneous tissue following other procedure; K21.9 Gastro-esophageal reflux disease without esophagitis; Z87.891 Personal history of nicotine dependence; Y83.8 Other surgical procedures as the cause of abnormal reaction of the patient, or of later complication, without mention of misadventure at the time of the procedure
CPT/HCPCS: 36415; 80053; 85025; 85610; 99282

== ENCOUNTER 2018-10-25 14:34 | Inpatient (IN) | payer OTHER ==
--- OUTSIDE RECORDS SUMMARY | 2018-10-25 14:50 | XMS REPORT | Continuity of Care Document ---
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 Chanel Lai MD Onset: and thigh Lumbar radiculopathy Chanel Lai MD Onset: 04/23/2018 Brachial neuritis Chanel Lai MD Onset: 04/23/2018 Family History Date Family Member(s) Observation Comments General Hypertension General Stroke General Cancer Father No autoimmune problems Mother Social History Type Date Description Comments Sex Unknown Lives With Alone Occupation Retail ETOH Use Denies alcohol use Tobacco Use Start: Unknown End: Patient is a former smoker Unknown Smoking Status Reviewed: 10/20/18 Patient is a former smoker Exercise Type/Frequency Exercises sporadically Allergies, Adverse Reactions, Alerts Description No Known Drug Allergies Medications Active Medications SIG Qnty Indications Ordering Provider Date Plaquenil Take 2 by mouth 180tabs Rajiv Goode, 09/16/2018 200mg Tablets daily ongoing M.D. D3 Super Strength take one 90caps Rajiv Goode, 08/29/2018 capsule/tablet M.D. 2000Unit Capsules daily by mouth Prednisone Take 2 Tabs By Unknown 20mg Tablets Mouth Every Day History Medications Mobic take 1 daily 90tabs M24.152 Chanel Lai MD 04/23/2018 - 15mg Tablets with food. 05/25/2018 Diclofenac Sodium take 1 tablet 60tabs M24.152 Chanel Lai MD 2017 - 75mg twice a day 05/25/[address] with food Ultracet 1 - 2 po 30tabs Lilly Fabian, 03/15/2013 - 37.5-325mg Tablets q4-6hr prn M.D. 06/23/2015 pain Tylenol as needed Unknown - 325mg Tablets 05/25/2018 Naproxen 1 tablet with Unknown - 500mg Tablets food by mouth 05/25/2018 twice a day Cyclobenzaprine HCL 1 tablet by Unknown - 10mg mouth q8 hours 05/25/2018 Tablets as needed muscle spasms Medications Administered in Office Medication SIG Qnty Indications Ordering Provider Date Triamcinolone (Kenalog) Chanel Lai MD 01/20/2018 Injection Immunizations Description No Information Available Vital Signs Date Vital Result Comment 10/20/2018 1:49pm Height 74 inches 6'2" Weight 265.12 lb Heart Rate 101 /min BP Systolic Sitting 138 mmHg BP Diastolic Sitting 86 mmHg Pain Level 6 O2 % BldC Oximetry 98 % BMI (Body Mass Index) 34.0 kg/m2 09/16/2018 2:54pm Height 74 inches 6'2" Weight 266.38 lb Heart Rate 80 /min BP Systolic Sitting 138 mmHg BP Diastolic Sitting 88 mmHg Pain Level 8 O2 % BldC Oximetry 98 % BMI (Body Mass Index) 34.2 kg/m2 08/19/2018 8:15am Height 74 inches 6'2" Weight 262.00 lb Heart Rate 92 /min BP Systolic Sitting 142 mmHg BP Diastolic Sitting 102 mmHg Respiratory Rate 14 /min Pain Level 0 BMI (Body Mass Index) 33.6 kg/m2 07/21/2018 10:52am Height 74 inches 6'2" Weight 247.00 lb Heart Rate 62 /min BP Systolic 134 mmHg BP Diastolic 84 mmHg Respiratory Rate 18 /min Body Temperature 98.3 F BMI (Body Mass Index) 31.7 kg/m2 05/26/2018 10:17am Height 74 inches 6'2" Weight 257.00 lb Heart Rate 80 /min BP Systolic 122 mmHg BP Diastolic 82 mmHg Pain Level 4 BMI (Body Mass Index) 33.0 kg/m2 04/23/2018 10:05am Height 74 inches 6'2" Weight 270.00 lb Heart Rate 70 /min BP Systolic Sitting 160 mmHg Rue lg cuff BP Diastolic Sitting 100 mmHg Rue lg cuff Pain Level 6 BMI (Body Mass Index) 34.7 kg/m2 03/17/2018 3:39pm Height 74 inches 6'2" Weight 270.00 lb BP Systolic 128 mmHg BP Diastolic 80 mmHg Respiratory Rate 18 /min Pain Level 5 BMI (Body Mass Index) 34.7 kg/m2 01/20/2018 3:37pm Height 74 inches 6'2" Weight 270.00 lb BP Systolic 132 mmHg BP Diastolic 78 mmHg Respiratory Rate 18 /min Pain Level 5 BMI (Body Mass Index) 34.7 kg/m2 01/13/2018 11:16am Height 74 inches 6'2" Heart Rate 96 /min BP Systolic 118 mmHg BP Diastolic 78 mmHg Body Temperature 98.1 F Pain Level 7 04/17/2016 3:09pm Height 74 inches 6'2" Heart Rate 96 /min BP Systolic 134 mmHg BP Diastolic 80 mmHg Pain Level 4 02/22/2016 3:04pm Height 74 inches 6'2" Weight 250.00 lb Heart Rate 84 /min BP Systolic 137 mmHg BP Diastolic 86 mmHg BMI (Body Mass Index) 32.1 kg/m2 Results Test Date Facility Test Result H/L Range Note Mini Igg AB Reflex 08/20/2018 [facility] SS-A/Ro Antibody <0.[address] [place] [address] [phone] SS-B/La Antibody 0.4 U 2 Sm (Kelly) IgG Antibody >8.0 U Abnormal 3 [employer]IOR [employer]PLICATION PROGRAMMER Antibody, IgG >8.0 U Abnormal 4 Scl-70 (Scleroderma) Antibody <0.2 U 5 Tania-1 Antibody <0.2 U 6 Laboratory test 08/20/2018 [facility] Complement C4 15 mg/dL 14 - [address] [place] [address] [phone] Complement C3 114 mg/dL 75 - 175 8 Anti Double Stranded Dna AB 202 IU/mL Abnormal 9 Cardiolipin 08/20/2018 [facility] Phospholipid Ab 10.1 MPL 10 Igg/Igm [address] IgM, [place] [address] [phone] Phospholipid Ab IgG 10.2 GPL 11 Lupus Anticoagulant 08/20/2018 [facility] Prothrombin 11.5 sec [address] Time(Lac) [place] [address] [phone] Lac Inr 1.0 Lac Aptt 29 sec 26 - 36 Lac DRVVT Screen Ratio 1.0 ratio 0.0 - 1.1 Lupus Anticoagulant Interpreta See Comment 13 Beta 2 08/20/2018 [facility] Beta 2 19.1 Abnormal [address] Glycoprotein IgG U/[place] [address] [phone] Beta 2 Glycoprotein IgM <9.4 U/mL 15 Anca AB Ser If 08/20/2018 [facility] C-Anca Negative Negative [address] [place] [address] [phone] P-Anca Indeterminate Abnormal Negative 16 Laboratory test 08/20/2018 [facility] Angiotensin 29 U/L 8 - [address] [place] [address] [phone] Vitamin D Total 25(Oh) 10.4 ng/mL Low 20-50 18 Thyroperoxidase AB 1.72 IU/mL N <9 19 Rheumatoid Factor < 10 IU/mL N <15 20 Cyclic Citrullinated Pep Igg <15.6 U 21 Hla B27 08/20/2018 [facility] Hla B27 Negative [address] [place] [address] [phone] Hla B27 Interp See Comment 23 Type & Screen 07/13/2018 [facility] Patient Blood Type B Positive [address] [place] [address] [phone] Antibody Screen NEGATIVE CBC Auto Diff 07/13/2018 [facility] White Blood 4.5 10^3/uL N 3.5-10.[address] [place] [address] [phone] Red Blood Count 4.19 10^6/uL N 4.00-5.40 Hemoglobin 12.3 g/dL N 12.0-16.0 Hematocrit 36 % N 35-47 Mean Corpuscular Volume 85 fL N 80-97 Mean Corpuscular Hemoglobin 29 pg N 27-31 Mean Corpuscular HGB Conc 35 g/dL N 31-36 Red Cell Distribution Width 13 % N 10.5-15 Platelet Count 6 10^3/uL Low 150-450 24 Mean Platelet Volume 12.2 fL High 7.4-10.4 Abs Neutrophils 3.5 10^3/uL N 1.5-7.7 Abs Lymphocytes 0.6 10^3/uL Low 1.0-4.8 Abs Monocytes 0.4 10^3/uL N 0-0.8 Abs Eosinophils 0.1 10^3/uL N 0-0.6 Abs Basophils 0 10^3/uL N 0-0.2 Abs Nucleated RBC 0 10^3/uL Granulocyte % 76.9 % Lymphocyte % 13.1 % Monocyte % 8.0 % Eosinophil % 1.3 % Basophil % 0.7 % Nucleated Red Blood Cells % 0 Immunoglob Gene 07/13/2018 [facility] BCGRV Specimen See Comment 25 Rearrange Jacek [address] [place] [address] [phone] Immunoglob Gene Rearrangment See Comment 26 Leukemia/Lymphoma Flow 07/13/2018 [facility] Path Interpretation tnp [address] 2-[address] [place] [address] [phone] Path Interpret 9-15 Marker (SEE NOTE) 27 Path Interpret > 16 Marker tnp Laboratory test 07/13/2018 [facility] Surgical SEE RESULT [address] [place] [address] [phone] 1 REFERENCE VALUE <1.0 (Negative) 2 REFERENCE VALUE <1.0 (Negative) 3 Interpretation: Positive (>=1.0) REFERENCE VALUE <1.0 (Negative) 4 Interpretation: Positive (>=1.0) REFERENCE VALUE <1.0 (Negative) 5 REFERENCE VALUE <1.0 (Negative) 6 REFERENCE VALUE <1.0 (Negative) Test Performed by: [facility] [place] [address] 7 Test Performed by: [facility] [place] [address] 8 Test Performed by: [facility] [address] [place] [address] 9 Interpretation: Positive (>75.0) REFERENCE VALUE <30.0 (Negative) Test Performed by: [facility] [place] [address] 10 REFERENCE VALUE <15.0 (Negative) 11 REFERENCE VALUE <15.0 (Negative) Test Performed by: [address] [address] 12 REFERENCE VALUE 10.3 - 12.8 13 No evidence of a lupus-like anticoagulant based on results of Prothrombin Time (PT), Activated Partial Thromboplastin Time (APTT), and Dilute Russells Viper Venom Time (DRVVT). Interpretation not reviewed by physician. Test Performed by: [place] [address] 14 Interpretation: Weak Positive (15.0-39.9) REFERENCE VALUE <15.0 (Negative) 15 REFERENCE VALUE <15.0 (Negative) Test Performed by: [place] [address] 16 Indeterminate for pANCA pattern by immunofluorescence using ethanol-fixed neutrophils. Consider further testing for anti-proteinase 3 (PR3) and/or anti-myeloperoxidase (MPO) antibodies, if clinically indicated. Also, consider testing for antinuclear antibody (MARYA) to rule out presence of interfering antibody. ADDITIONAL INFORMATION This test was developed and its performance characteristics determined by [facility] in a manner consistent with CLIA requirements. This test has not been cleared or approved by the U.S. Food and Drug Administration. Test Performed by: [facility] [address] [place] [address] 17 Test Performed by: [place] [address] 18 Please check labs this week 19 Please check labs this week 20 Please check labs this week 21 REFERENCE VALUE <20.0 (Negative) Test Performed by: [facility] [address] [place] [address] 22 REFERENCE VALUE Not Applicable 23 RESULT: HLA-B27 antigen was not detected. ADDITIONAL INFORMATION Method: Flow Cytometry Performing Laboratory CLIA# [id number] Test Performed by: [facility] [address] [address] 24 Consistent with Previous Results Reported on 07/10/18 Critical Result PLT:6 Called to and read back by: [id number] at: 07/13/2018 07:53:50 by:[email or web address] Critical Result PLT:6 Called to and read back by: [id number] at: 07/13/2018 07:53:55 by:[id number] 25 RESULT: Left axillary lymph node 26 Lymph node, left axillary, paraffin-embedded tissue, immunoglobulin gene rearrangement analysis ([id number]; 07/13/2018): Negative. No clonal immunoglobulin gene rearrangement was detected. Correlation with pathologic, clinical and other supporting (e.g. immunophenotypic) findings is required for final interpretation of these results. Method summary - immunoglobulin gene rearrangement: A PCR-based assay was performed on extracted DNA using primers that bind the heavy and kappa light chain genes. Signing Pathologist: Arcelia Thompson M.D. ADDITIONAL INFORMATION This test was developed using an analyte specific reagent. Its performance characteristics were determined by [facility] in a manner consistent with CLIA requirements. This test has not been cleared or approved by the U.S. Food and Drug Administration. Test Performed by: [facility] - [address] [address] 27 FINAL DIAGNOSIS: Specimen Source: Left axillary lymph node ([id number]) Flow cytometry immunophenotypic analysis: No evidence of an immunophenotypically abnormal cell population. The abnormal surface Ig negative population detected in the right axillary lymph node is not present in this node. Interpretative data: Lymphocytes: 96% of gated events B-cells: 39% of lymphs; kappa:lambda within normal limits T-cells/NK cells: No aberrant population detected. Markers tested: CD3, CD5, CD7, CD10, CD19, CD20, CD23, CD45, kappa surface light chains, lambda surface light chains, 7-AAD. Quality Assessment: Acceptable Viability: Acceptable Viable lymphocytes (7-AAD): 97% Specimen received within validated guidelines. A Argueta-Giemsa stained slide prepared from the flow cytometry specimen was examined for quality purposes. Electronically signed by: Ingrid Lima MD 07/15/18 0954 Technical component performed by: [place] [address] Senior Windows Systems Administrator: Delmer King II, MD, PhD. 28 SEE RESULT BELOW Name: JOHANNA POPE : [address]: Yinka Alejo MD Acct: [id number] Unit: [id number] AGE: 33 Location: OR Re07/13/18 SEX: F Status: BECKIE TEJADA SPEC: [id number] GERARDO: 07/13/18-[address]: Yinka Alejo MD REQ: [id number] RECD: 07/13/18 STATUS: SOUT _ ORDERED: LEVEL 4, IMMUNO-FIRST, IMMUNO-ADDL/7, IMMUNO-QUANT, TOUCH PREP ADDENDUM Immunoglobulin Gene Rearrange, V has been performed at [place], [place]. The testing reveals: Received: 15 Jul 2018 12:48 Reported: 17 Jul 2018 11:06 Specimen: Left axillary lymph node Final Diagnosis: See note [1] below. Lymph node, left axillary, paraffin-embedded tissue, immunoglobulin gene rearrangement analysis ([id number]; 07/13/2018): Negative. No clonal immunoglobulin gene rearrangement was detected. Correlation with pathologic, clinical and other supporting (e.g. immunophenotypic) findings is required for final interpretation of these results. Method summary - immunoglobulin gene rearrangement: A PCR-based assay was performed on extracted DNA using primers that bind the heavy and kappa light chain genes. Signing Pathologist: Arcelia Thompson M.D. Addendum Signed (signature on file) David Carter MD 1457 Flow cytometry has been performed at [place], [place]. The testing reveals: FINAL DIAGNOSIS: CONTINUED ON NEXT PAGE DEPARTMENT OF PATHOLOGY, [address] [place] [address] David Carter M.D. Director CLIA # [id number] RUN DATE: 07/20/18 [facility] LAB LIVE PAGE 2 Patient: JOHANNA POPE [id number] (Continued) ADDENDUM (Continued) Specimen Source: Left axillary lymph node ([id number]) Flow cytometry immunophenotypic analysis: No evidence of an immunophenotypically abnormal cell population. The abnormal surface Ig negative population detected in the right axillary lymph node is not present in this node. Interpretative data: Lymphocytes: 96% of gated events B-cells: 39% of lymphs; kappa:lambda within normal limits T-cells/NK cells: No aberrant population detected. Markers tested: CD3, CD5, CD7, CD10, CD19, CD20, CD23, CD45, kappa surface light chains, lambda surface light chains, 7-AAD. Quality Assessment: Acceptable Viability: Acceptable Viable lymphocytes (7-AAD): 97% Specimen received within validated guidelines. A Argueta-Giemsa stained slide prepared from the flow cytometry specimen was examined for quality purposes. Electronically signed by: Ingrid Lima MD 07/15/18 0954 Technical component performed by: [place] [address] Senior Windows Systems Administrator: Delmer King II, MD, PhD. Addendum Signed (signature on file) Ingrid Lima MD 1210 FINAL DIAGNOSIS Left axillary lymph node, excisional biopsy: -- Benign reactive lymph node; see comment. CONTINUED ON NEXT PAGE DEPARTMENT OF PATHOLOGY, [address] [place] [address] David Carter M.D. Director [facility] # [id number] RUN DATE: 07/20/18 [facility] LAB LIVE PAGE 3 Patient: JOHANNA POPE [id number] (Continued) FINAL DIAGNOSIS (Continued) COMMENT: Histologic sections show a lymph node with intact architecture and reactive-appearing lymphoid follicles. Immunohistochemical stains, with appropriately reacting controls, were performed with the following results: CD20 positive in lymphoid follicles PAX-5 similar to CD20 BCL 2 negative in lymphoid follicles BCL 6 positive in lymphoid follicles CD5 negative in lymphoid follicles CD3 similar to CD5 CD10 similar to BCL 6 Ki67 proliferation index of nearly 100% and lymphoid follicles, 10-15% in marginal zone Flow cytometry is negative for an immunophenotypically abnormal cell population. The findings are those of a benign reactive lymph node. Of note, the lymph node biopsy from the right axilla by fine-needle showed a surface Ig negative abnormal B-cell population that could represent reactive immunoblasts or a lymphoproliferative disorder. Excisional biopsy of that lymph node would be required to explain those findings. PATHOLOGY SURGICAL CONSULT Frozen section (FS)/Touch Prep (TP)/Gross Consult (GC) TP) Lymph node, left axillary, biopsy: a. Lymphoid proliferation. (DS) b. Sent for flow cytometry and B cell gene rearrangement. (DS) PRE-OPERATIVE DIAGNOSIS Left axillary lymph node CONTINUED ON NEXT PAGE DEPARTMENT OF PATHOLOGY, [address] [place] [address] David Carter M.D. Director [facility] # [id number] RUN DATE: 07/20/18 [facility] LAB LIVE PAGE 4 Patient: JOHANNA POPE [id number] (Continued) GROSS DESCRIPTION (Continued) GROSS DESCRIPTION The specimen is received fresh with no source identified and a requisition labeled, Left Axillary Lymph Node, and consists of a 3.1 x 2.3 x 1.1 cm donaldson-red lymph node with abundant adherent yellow fat. The cut surface is mottled donaldson-red and focally anthracotic. The lymph node is serially sectioned and a consumer sales representative section is submitted for flow cytometry. The remaining node is entirely submitted in two cassettes. Signed by and Reported on: Ingrid Lima MD 07/15/18 1010 END OF REPORT DEPARTMENT OF PATHOLOGY, [address] [place] [address] David Carter M.D. Director [facility] # [id number] Procedures Date Code Description Status 07/13/2018 97295 Biopsy/Excision Deep Axillary Node(S) Completed 01/20/2018 68002 Inj/Aspir Major JT Or Bursa W/ US Completed 03/19/2016 44500 Nerve Conduction 07-08 Studies Completed 03/19/2016 09568 Needle Electromyography Each Extremity W/Related Completed Paraspinal Areas 03/16/2013 91001 Carpal Tunnel Release Completed 03/16/2013 82282 Trigger Finger Release Incision / Tendon Sheath Incision Completed Encounters Type Date Location Provider Dx Diagnosis Office Visit 09/16/2018 Rheumatology Rajiv Goode, M32.9 Systemic lupus 2:40p [facility] erythematosus, unspecified Z79.899 Other fpc (current) drug therapy R76.0 Raised antibody titer R59.0 Localized enlarged lymph nodes Office Visit 08/19/2018 8:00a Rheumatology Rajiv Goode, R76.0 Raised antibody [facility] titer R59.0 Localized enlarged lymph nodes R07.9 Chest pain, unspecified R53.83 Other fatigue E06.9 Thyroiditis, unspecified M54.5 Low back pain R06.83 Snoring Office Visit 07/09/2018 7:00a [facility] Jovon Hawkins, R51 Headache M.D. R20.2 Paresthesia of skin Office Visit 07/09/2018 Surgical Neeraj S. R59.0 Localized 7:00a [facility] MD enlarged lymph nodes Office Visit 07/08/2018 [facility] M79.622 Pain in left 10:54a [facility] upper arm Hospitalists R59.0 Localized enlarged lymph nodes D69.6 Thrombocytopenia, unspecified D72.819 Decreased white blood cell count, unspecified Office Visit 05/26/2018 9:45a Orthopedic Chanel Lai, M24.152 Other articular Services Of [facility] ricco NaylorMMariluzAMariluz disorders, left hip M54.16 Radiculopathy, lumbar region Office Visit 04/23/2018 9:45a Orthopedic Chanel Lai, M24.152 Other articular Services Of [facility] ricco NaylorMMariluzAMariluz disorders, left hip M54.12 Radiculopathy, cervical region M25.852 Other specified joint disorders, left hip Office Visit 03/17/2018 3:15p Orthopedic Chanel Lai, M24.152 Other articular [facility] ricco NaylorMMariluzAMariluz disorders, left hip Office Visit 01/13/2018 10:45a Orthopedic Chanel Lai, M24.152 Other articular Services Of [facility] ricco NaylorMMariluzAMariluz disorders, left hip M54.16 Radiculopathy, lumbar region M70.62 Trochanteric bursitis, left hip Office Visit 04/17/2016 3:10p Orthopedic Lilly Fabian, G56.02 Carpal tunnel Services Of M.D. syndrome, left C.M.A. upper limb G56.01 Carpal tunnel syndrome, right upper limb G56.03 Carpal tunnel syndrome, bilateral upper limbs Office Visit 02/22/2016 2:30p Orthopedic Lilly Fabian G56.01 Carpal tunnel Services Of M.D. syndrome, right C.M.A. upper limb G56.02 Carpal tunnel syndrome, left upper limb R20.0 Anesthesia of skin R20.2 Paresthesia of skin Office Visit 03/04/2013 1:45p Orthopedic Lilly Fabian, 354.0 Carpal Tunnel Services Of M.D. Syndrome C.M.A. 727.03 Trigger Finger Acquired Plan of Treatment Future Appointment(s):12/03/2018 10:40 am - Rajiv Goode M.D. at [facility]04/23/2019 11:00 am - Jovon Hawkins M.D. at [facility]11/04/2018 8:30 am - Celi Hurst MD at [facility]10/20/2018 - Rajiv Goode M.D.M32.9 Systemic lupus erythematosus, uevywfxuftoK51.899 Other fpc (current) drug therapyFollow up:Follow up in 4 to 5 weeks or sooner if xqadduC67.0 Localized enlarged lymph cfwknG38.6 Thrombocytopenia, unspecified
--- NOTE | 2018-10-25 17:21 | ED ---
Upper Extremity Pain - HPI Summary HPI Summary: The patient is a 33 y/o F presenting to [facility] with a chief complaint of right arm pain that causes decreased ROM starting yesterday with a sudden onset erythematous rash on the chest, arms, legs, abdomen, and back this morning. The rash is not pruritic, but it is painful. The aching pain is currently rated 6/ 10 in severity. She denies nausea, vomiting, fevers, and chills. No recent travel. She denies hx od blood clots. Recent dx of lupus and low platelets. - History of Current Complaint Chief Complaint: EDExtremityUpper Stated Complaint: RASH PAIN IN RIGHT ARM PER PT Time Seen by Provider: 10/25/18 16:49 Hx Obtained From: Patient Hx Last Menstrual Period: 12/20/16 Mechanism Of Injury: Unknown Onset/Duration: Started Hours Ago - yesterday, Still Present Timing: Lasting Hours Severity Initially: Moderate Severity Currently: Moderate Pain Location: Arm - right Aggravating Factor(s): Movement Alleviating Factor(s): Nothing Associated Signs & Symptoms: Positive: Other - POSITIVE: erythematous rash on arms, chest, back, abdomen, and legs; NEGATIVE: chills. Negative: Fever, Nausea , Vomiting - Allergies/Home Medications Allergies/Adverse Reactions: Allergies Allergy/AdvReac Type Severity Reaction Status Date / Time No Known Allergies Allergy Verified 10/25/18 14:37 Home Medications: Home Medications Acetaminophen [Tylenol] 650 mg PO QID PRN 10/25/18 [History Confirmed 10/25/18] Hydroxychloroquine TAB* [Plaquenil TAB*] 200 mg PO DAILY 10/25/18 [History Confirmed 10/25/18] riTUXimab* [RiTUXan*] 100 mg IV WEEKLY 10/25/18 [History Confirmed 10/25/18] PMH/Surg Hx/FS Hx/Imm Hx Endocrine/Hematology History: Reports: Autoimmune Disease - Lupus Denies: Hx Diabetes Cardiovascular History: Denies: Hx Hypertension, Hx Pacemaker/ICD GI History: Reports: Hx Gastroesophageal Reflux Disease - ON DAILY OMEPRAZOLE History: Denies: Hx Renal Disease Sensory History: Reports: Hx Contacts or Glasses Denies: Hx Hearing Aid Opthamlomology History: Reports: Hx Contacts or Glasses Psychiatric History: Denies: Hx Panic Disorder - Cancer History Cancer Type, Location and Year: none - Surgical History Surgery Procedure, Year, and Place: CHOLECYSTECTOMY. RIGHT CARPAL TUNNEL REPAIR Hx Anesthesia Reactions: No Infectious Disease History: No Infectious Disease History: Denies: Hx Clostridium Difficile, Hx Hepatitis, Hx Human Immunodeficiency Virus (HIV), Hx of Known/Suspected MRSA, Hx Shingles, Hx Tuberculosis, Hx Known/ Suspected VRE, Hx Known/Suspected VRSA, History Other Infectious Disease, Traveled Outside the [place] in Last 30 Days - Family History Known Family History: Positive: Other - Negative: DVT Negative: Cardiac Disease, Blood Disorder Family History: Family history of various cancers. - Social History Alcohol Use: None Hx Substance Use: No Substance Use Type: Reports: Marijuana Substance Use Comment - Amount & Last Used: occas Hx Tobacco Use: Yes Smoking Status (MU): Former Smoker Do You Chew or Dip Tobacco: No Have You Chewed or Dipped Tobacco in the LAST YEAR: No Have You Smoked in the Last Year: No Review of Systems Negative: Fever, Chills Negative: Vomiting, Nausea Positive: Other - pain throughout right arm Positive: Rash - erythematous rash on chest, arms, abdomen, back, and bilateral legs All Other Systems Reviewed And Are Negative: Yes Physical Exam - Summary Physical Exam Summary: GENERAL: Patient is a well-developed and nourished female who is lying comfortable in the stretcher. Patient is not in any acute respiratory distress. HEAD AND FACE: Normocephalic EYES: PERRLA, EOMI x 2. EARS: Hearing grossly intact. MOUTH: Oropharynx within normal limits. NECK: Supple, trachea is midline, no adenopathy, no JVD, no carotid bruit. CHEST: Symmetric, no tenderness at palpation LUNGS: Clear to auscultation bilaterally. No wheezing or crackles. CVS: Tachycardic rate and rhythm, S1 and S2 present, no murmurs or gallops appreciated. ABDOMEN: Soft, non-tender. Bowel sounds are normal. No abnormal abdominal pulsations. EXTREMITIES: Full ROM in all major joints, no edema, no cyanosis or clubbing. NEURO: Alert and oriented x 3. No acute neurological deficits. Speech is normal and follows commands. SKIN: Dry and warm. Diffuse papular and macular rash on the chest, back, and abdomen thats blanching, and petechiae on the bilateral legs. Triage Information Reviewed: Yes Vital Signs On Initial Exam: Initial Vitals Temp Pulse Resp BP Pulse Ox 97.6 F 127 18 120/82 98 10/25/18 14:37 10/25/18 14:37 10/25/18 14:37 10/25/18 14:37 10/25/18 14:37 Vital Signs Reviewed: Yes Diagnostics - Vital Signs Vital Signs Temp Pulse Resp BP Pulse Ox 10/25/18 14:37 97.6 F 127 18 120/82 98 - Laboratory Result Diagrams: 10/26/18 06:43 10/26/18 06:43 Lab Statement: Any lab studies that have been ordered have been reviewed, and results considered in the medical decision making process. - Radiology CXR Radiology Interpretation Completed By: Radiologist Summary of Radiographic Findings: No radiographic evidence of acute cardiopulmonary disease. ED physician has reviewed this report. - Ultrasound No standard instances Ultrasound Interpretation Completed By: Radiologist Summary of Ultrasound Findings: Venous Doppler RUE: No acute findings. No evidence of deep vein thrombosis. ED physician has reviewed this report. - EKG 1729 Cardiac Rate: Tachycardia - 128 BPM EKG Rhythm: Sinus Tachycardia EKG Comparison: Other - No EKG for comparison. Summary of EKG Findings: Sinus tachycardia. Course/Dx - Course Course Of Treatment: The patient is a 33 y/o F presenting to [facility] with a chief complaint of right arm pain that causes decreased ROM starting yesterday with a sudden onset erythematous rash on the chest, arms, legs, and back this morning. Upon physical exam, the patient exhibits a diffuse papular and macular rash on the chest, back, and abdomen thats blanching, and petechiae on the bilateral legs. In the ED course, the patient was administered Ns, Morphine, Solu-Medrol, Iohexol (for CT), and Benadryl. Blood work reveals plt of 44, MPV of 10.6, abs lymphs of 0.3, INR of 1.33, sodium of 131, chloride of 98, glucose of 101, magnesium of 1.8, troponin of 0.04, globulin of 4.8, and albumin/globulin ratio of 0.8. EG reveals sinus tachycardia of 128 BPM. CXR reveals no acute process. Venous Doppler reveals no signs of DVT. We will order Chest/Thorax CTA to rule out DVT. She is diagnosed with skin rash, tachycardia, and elevated troponin. The patient is a sing-out to Dr. Alon Kramer MD, at change of shift at 1900 pending Chest/Thorax CTA and disposition. - Diagnoses Provider Diagnoses: Fever, Viral syndrome Discharge - Sign-Out/Discharge Documenting (check all that apply): Sign-Out Patient Signing out patient TO: Alon Kramer - Patient is a sign-out at shift change at 1900 pending CTA and disposition. Patient Received Moderate/Deep Sedation with Procedure: No - Discharge Plan Condition: Stable Disposition: ADMITTED TO [facility] - Billing Disposition and Condition Condition: STABLE Disposition: Admitted to [facility] - Attestation Statements Document Initiated by Scribe: Yes Documenting Scribe: Fatuma Key Provider For Whom Scribe is Documenting (Include Credential): Dr. Dorian Sevilla MD Scribe Attestation: Fatuma Sadler scribed for Dr. Dorian Sevilla MD on 10/26/18 at 1259. Scribe Documentation Reviewed: Yes Provider Attestation: The documentation as recorded by the Fatuma wynn accurately reflects the service I personally performed and the decisions made by , Dr. Dorian Sevilla MD Status of Scribe Document: Viewed
[2018-10-25] MEDS ORDERED: NS 0.9% 1000 ML** 1,000 ML IV ONE ×3 (17:27→21:12)
[2018-10-25] MEDS ORDERED: methylPREDNISolone 125 MG* 2 ML VIAL IV ONE (17:29)
[2018-10-25] MEDS ORDERED: diPHENhydraMINE IV* 50 MG/ML 1 ml VIAL (BENADRYL) IV ONE (17:29)
[2018-10-25] MEDS ORDERED: methylPREDNISolone SOD 40 MG* 1 ML VIAL IV ONE (17:30)
[2018-10-25] MEDS ORDERED: Morphine 4 MG/ML VIAL (1 ml) 4 MG/ML VIAL IV ONE (17:31)
[2018-10-25 18:16] LABS: ABS Lymphocytes 0.3 10^3/ul (1.0-4.8); ABS Monocytes 0.2 10^3/ul (0-0.8); ABS Neutrophils 4.2 10^3/ul (1.5-7.7); Eosinophil % 0.4 %; Hematocrit 37 % (35-47); Hemoglobin 12.7 g/dL (12.0-16.0); Lymphocyte % 6.7 %; Mean Corpuscular HGB Conc 34 g/dL (31-36); Mean Corpuscular Hemoglobin 29 pg (27-31); Mean Corpuscular Volume 85 fL (80-97); Mean Platelet Volume 10.6 fL (7.4-10.4); Platelet Count 44 10^3/uL (150-450); Red Blood Count 4.37 10^6 /uL (3.70-4.87); Red Cell Distribution Width 14 % (10.5-15); White Blood Count 4.8 10^3/uL (3.5-10.8)
[2018-10-25 18:19] LABS: Activated Partial Thrombo Time 30.4 seconds (26.0-36.3); INR 1.33 (0.82-1.09)
[2018-10-25 18:29] LABS: ALT 14 U/L (7-52); AST 19 U/L (13-39); Albumin 3.9 g/dL (3.2-5.2); Albumin/Globulin Ratio 0.8 (1-3); Alkaline Phosphatase 52 U/L (34-104); Anion Gap 7 mmol/L (2-11); BUN/Creatinine Ratio 11.6 (8-20); Blood Urea Nitrogen 10 mg/dL (6-24); CO2 Carbon Dioxide 26 mmol/L (22-32); Calcium 9.1 mg/dL (8.6-10.3); Chloride 98 mmol/L (101-111); EGFR African American 91.4 (>60); EGFR Non-African American 75.5 (>60); Globulin 4.8 g/dL (2-4); Glucose 101 mg/dL (70-100); Magnesium 1.8 mg/dL (1.9-2.7); Potassium 3.5 mmol/L (3.5-5.0); Sodium 131 mmol/L (135-145); Total Protein 8.7 g/dL (6.4-8.9)
[2018-10-25 18:35] LABS: HCG Pregnancy < 0.60 mIU/mL
[2018-10-25 18:48] LABS: Troponin I 0.04 ng/mL (<0.04)
[2018-10-25] MEDS ORDERED: Iohexol 350* (CONTRAST) 500 ML MDV IV ONE (19:09)
--- NOTE | 2018-10-25 19:19 | ED ---
Progress - Progress Note Progress Note: The patient is a sign-out from Dr. Dorian Sevilla MD, to Dr. Alon Kramer MD at change of shift at 1900 pending CTA chest and disposition. Re-Evaluation - Re-Evaluation First Eval Re-Evaluation Time: 19:56 Comment: Patient was found to have a temperature 102.8F that explains her tachycardia. Pt states that shes been having sniffles and shes achy. Patient most likely has viral syndrome, and will be admitted by hospitalist for mildly elevated troponin. Hospitalist is still requesting CTA of chest. Course/Dx - Course Course Of Treatment: The patient is a sign-out from Dr. Dorian Sevilla MD, to Dr. Alon Kramer MD at change of shift at 1900 pending CTA chest and disposition. Upon re-evaluation, patient temperature was found to be 102.8F, explaining her tachycardia. MARIO ALBERTO Caballero still continues to want CTA of chest and will follow-up this report. Patient will be admitted to the hospital for further workup. Patient understands and agrees with this plan. - Diagnoses Provider Diagnoses: Fever, Viral syndrome - Provider Notifications Discussed Care Of Patient With: Delmer Wright Time Discussed With Above Provider: 20:23 Instructed by Provider To: Other - Discussed patient case with Delmer Wright who accepts the patient for admission to the hospital. Discharge - Sign-Out/Discharge Documenting (check all that apply): Patient Departure - Admit, Receiving Sign- Out Receiving patient FROM: Dorian Sevilla - Patient received upon shift change pending CTA chest and disposition Patient Received Moderate/Deep Sedation with Procedure: No - Discharge Plan Condition: Stable Disposition: ADMITTED TO [facility] Referrals: Luis Wong MD [Primary Care Provider] - - Billing Disposition and Condition Condition: STABLE Disposition: Admitted to [facility] - Attestation Statements Document Initiated by Scribe: Yes Documenting Scribe: Bautista Laguna Provider For Whom Konstantin is Documenting (Include Credential): Alon Kramer MD Scribe Attestation: Bautista Sadler, scribed for Alon Kramer MD on 10/25/18 at 2041. Scribe Documentation Reviewed: Yes Provider Attestation: The documentation as recorded by the Bautista wynn accurately reflects the service I personally performed and the decisions made by me, Alon Kramer MD Status of Scribe Document: Viewed
[2018-10-25] MEDS ORDERED: Acetaminophen TAB* 325 MG PO ONE (19:59)
[2018-10-25] MEDS ORDERED: Acetaminophen TAB* 325 MG PO PRN (20:22)
[2018-10-25] MEDS ORDERED: Ondansetron INJ* 2 MG/ML VIAL IV PRN (20:22)
[2018-10-25 20:26] LABS: TSH (Thyroid Stimulating Horm) 2.14 mcIU/mL (0.34-5.60)
[2018-10-25 20:29] LABS: Influenza A Molecular NEGATIVE (Negative); Influenza B Molecular NEGATIVE (Negative)
[2018-10-25] MEDS ORDERED: diPHENhydraMINE IV* 25 MG in NS 0.9% 50 ML* 50 ML IVPB PRN (20:33)
[2018-10-25] MEDS ORDERED: Vancomycin per Pharmacy* NOTE FOLLOW UP SCH (21:00)
[2018-10-25] MEDS ORDERED: Magnesium Sulfate 2 GM IV* 2 GM/50 ML BAG IVPB ONE (21:08)
[2018-10-25] MEDS ORDERED: diPHENhydraMINE IV* 50 MG/ML 1 ml VIAL (BENADRYL) SLOW PUSH PRN (21:39)
--- NOTE | 2018-10-25 21:40 | HP ---
CC: Dr. Gómez; Dr. Goode; Dr. Wong HISTORY AND PHYSICAL: DATE OF ADMISSION: PRIMARY CARE PROVIDER: Dr. Wong. RECREATION LEADER: Dr. Gómez. DIRECTOR OF EXHIBIT DEVELOPMENT: Dr. Goode. ADDENDUM: The case was reviewed and discussed with Delmer Ortiz, physician residential living assistant. Ms. Parikh is a 33-year-old lady with a past medical history of SLE, diagnosed in June in the setting of thrombocytopenia. She received her Rituxan injection 2 days ago and presents to the emergency room with complaints of right arm pain and a rash. Labs were reviewed. Her platelets are 44 at this time. She had minimally elevated troponin at 0.04. Chest x-ray showed no acute pulmonary disease and a right upper extremity Doppler was negative for DVT. EKG showed sinus tachycardia at 128 beats per minute with no ST-T changes. IMPRESSION: The impression is the patient probably had an allergic reaction to Rituxan and she will be continued on steroids and Benadryl. While in the emergency room, the patient spiked fever and became more tachycardic and the impression is with her immunosuppressed status, she may be developing an infection. So, she will be started on broad spectrum antibiotics. She received IV hydration and we will request cultures. With her history of systemic lupus erythematosus, she is also at risk for rhythm at pulmonary embolism and she also has lower extremity swelling and pain. So, we will check lower extremity Doppler's and CTA of the chest. I am in agreement with the current management and Hematology will resume this patient's care in the morning. [id number]/CPS #: [id number] MTDD
[2018-10-25 21:54] LABS: Erythrocyte Sed Rate 103 mm/Hr (0-19)
[2018-10-25] MEDS ORDERED: Vancomycin(*) 1,500 MG in NS 0.9% 250 ML* 250 ML IVPB ONE (22:00)
[2018-10-25] MEDS: oxyCODONE TAB* 5 MG TAB PO PRN (22:08)
[2018-10-25 22:11] LABS: Troponin I 0.05 ng/mL (<0.04)
[2018-10-25] MEDS: Cefepime 1 GM in Dextrose(*) 1 GM/50 ML BAG IV SCH (23:03)
[2018-10-25] MEDS: NS 0.9% 1000 ML** 1,000 ML IV SCH (23:05)
[2018-10-26 00:15] LABS: Troponin I 0.05 ng/mL (<0.04)
--- NOTE | 2018-10-26 00:56 | HP ---
ATTENDING ADDENDUM NOW INCLUDED ON THIS REPORT CC: Dr. Luis Wong; Dr. Rajiv Goode; MARIO ALBERTO Moreno; Dr. Juan Gómez. * ADMISSION HISTORY AND PHYSICAL: DATE OF ADMISSION: 10/25/18 PRIMARY CARE PROVIDER: Dr. Luis Wong. MY ATTENDING WHILE IN THE HOSPITAL: Dr. Parris Garrido.* (DICTATED BY MARIO ALBERTO PINK) CONSULTING HEMATOLOGY/ONCOLOGY: MARIO ALBERTO Moreno OUTPATIENT PANEL EDGE SEALER/ONCOLOGIST: Dr. Juan Gómez. OUTPATIENT WAREHOUSE WORKER 2ND SHIFT: Dr. Rajiv Goode. CHIEF COMPLAINT: Right arm pain, rash. HISTORY OF PRESENT ILLNESS: Ms. Parikh is a 33-year-old female with a past medical history significant for a recent diagnosis of lupus with severe thrombocytopenia, treated with high dose of steroids, Plaquenil and was recently started on rituximab. The patient's platelets had before her hospitalization been increasing, currently at 44 from a low of 6. The patient notes receiving her dose of rituximab on Friday10/23/18 when she developed a rash across her chest with the infusion which quickly dissipated. The patient did not have any itching with this rash or pain. The patient was instructed to return to hospital if she had any further rash. The patient went home was feeling her usual state of health. The patient's chronic symptoms from her lupus include joint pain and severe fatigue. The patient also has been complaining of stuffy nose and body aches which are her baseline. The patient denied fever or chills. The patient denied sick contacts. The patient had no recent changes in her medications besides increase in her Rituxan. The patient had been on 40 mg of prednisone daily. The patient on the evening of 10/24/18 began to develop severe pain in her right arm in the joints and radiating into her shoulder. The patient described the pain as sharp, worse with movement, associated with swelling and redness. The patient around the same time developed a rash, which started on her chest and been spread to her abdomen and back. The patient also developed a rash on her right lower extremity of a different character consisting of small red dots. The rash on her chest consistent of confluent raised erythematous areas without itching and without pain. The patient's arm continued to get worse and that is what prompted her to come to the hospital. In the emergency department, the patient was found to have no elevated white blood cell count, significant tachycardia with rates up to the 140s. The patient initially was afebrile but then developed a fever of 102.8 and chills consistent with rigors. The patient again had a stuffy nose. Denied abdominal pain, diarrhea, pain with urination, gross blood in her urine. The patient had no chest pain, shortness of breath, palpitations, no dizziness on standing. The patient had no cough or sputum production. The patient in the emergency department had platelet count 44 and elevated troponin at 0.04 and as above had tachycardia.. The patient has a venous Doppler study of her right upper extremity which showed no DVT. The patient had swelling in her right lower extremity greater than the left which was relatively new in onset. Due to concern for sepsis in an immunocompromised patient and elevated troponin, we were asked to evaluate the patient for admission to hospital. PAST MEDICAL HISTORY: Thrombocytopenia, lupus, GERD. PAST SURGICAL HISTORY: Cholecystectomy in 2014, carpal tunnel release in 2009. MEDICATIONS: Per the patient's report: 1. Prednisone 40 mg p.o. daily. 2. Plaquenil 400 mg p.o. daily. 3. Vitamin D 2000 units p.o. daily. 4. Rituximab 100 mg IV weekly. ALLERGIES: No known drug allergies. FAMILY HISTORY: The patient's mother of thyroid cancer. The patient's paternal grandmother and maternal grandmother of intestinal tumor. The patient's father is alive and well. The patient has 2 siblings who are also well. SOCIAL HISTORY: The patient has never smoked. Drank alcohol. Denied illicit drug use. The patient works at the [employer]. The patient is not and has 1 child who is 4. The patient surrogate decision maker would be her sister, Kerrie Parikh. REVIEW OF SYSTEMS: A 14-point review of systems was reviewed and is negative, except as above in the HPI. PHYSICAL EXAMINATION GENERAL: The patient is a 33-year-old female who appears stated age and is sitting comfortably in bed, in no acute distress. VITAL SIGNS: At time of evaluation, temperature 102.8, pulse rate 135, respiratory rate 18, oxygen saturation 99% on room air, blood pressure 127/75. HEENT: Head: Normocephalic, atraumatic. Sclerae anicteric. No conjunctival injection. Nasal mucosa moist. Oral mucosa moist. No pharyngeal erythema, discharge, or exudate. NECK: Supple, nontender. No lymphadenopathy. No carotid bruits auscultated. No JVD. RESPIRATORY: Clear to auscultation bilaterally. No wheezes, rales, or rhonchi. Good air exchange bilaterally. CARDIAC: Tachycardic. No clicks, murmurs, gallops, or rubs. Pulses are 2+ in the bilateral dorsalis pedis, posterior tibialis and radial areas. Swelling noted to the right lower extremity. Right lower extremity calf circumference 16.5 inches, left lower extremity calf circumference 14.5 inches. No bilateral calf tenderness noted. ABDOMEN: Soft, nontender, nondistended. Bowel sounds present and normoactive in all 4 quadrants. No hepatosplenomegaly. No abdominal bruits auscultated. No hepatojugular reflux. GENITOURINARY: No suprapubic or CVA tenderness. NEURO: Cranial nerves II through XII intact. No focal deficits. Alert and oriented x3. PSYCHIATRIC: Pleasant and cooperative. SKIN: Clean, dry, and intact. Large rash consisting of confluent macules over the chest, back, abdomen and arms. Right upper extremity swollen with warmth around the joints of the right upper extremity including the wrist, elbow and shoulder with pain with any passive manipulation. Left upper extremity, no pain with any passive manipulation. No swelling or erythema. Vasculitic appearing rash in the right lower extremity consisting of small nonblanchable red areas on the overton and dorsum of the foot. DIAGNOSTIC STUDIES/LAB DATA: White blood cell count 4.8, hemoglobin 12.7, platelet count 44. INR 1.33, aPTT 34 and 12.4. Sodium 131, potassium 3.5, chloride 98, carbon dioxide 26, anion gap 7, BUN 10, creatinine 0.86, glucose 101, lactic acid 2.0, calcium 9.1, magnesium 1.8. Bilirubin 0.7, AST 19, ALT 14 , alkaline phosphatase 50. Troponin I 0.04. BNP 65. Protein 8.7, albumin 3.9 , globulin 4.8. TSH 2.14. Beta-hCG less than 0.6. Influenza A and B are negative. Studies: Electrocardiogram shows sinus tachycardia, normal axis, no hypertrophy , enlargement or ST abnormalities. Chest x-ray read as no acute cardiopulmonary disease. Venous Doppler study of the right upper extremity read as no acute findings, no evidence of deep venous thrombosis. Chest thoracic CTA to this author's read shows no pulmonary embolism, no large pulmonary consolidation, possible trivial pericardial effusion. No other acute intravascular abnormality. ASSESSMENT AND PLAN: Ms. Parikh is a 33-year-old female with a past medical history significant for lupus, severe thrombocytopenia, who was currently being treated with prednisone, Rituxan and Plaquenil who developed a rash and a fever 2 days after her most recent rituximab infusion. The patient was admitted to the hospital for treatment of fever in an immunocompromised patient for further evaluation of the patient's rash and cardiac status. 1. Sepsis. The patient meets sepsis criteria with elevated temperature of 102.8 , pulse rate 135. The patient has no discernable source at this time. The patient does not have white blood cell count but her immune reaction may be modulated by her antiinflammatory medications. The patient will be started on broad spectrum antibiotics of vancomycin and cefepime. The patient had an influenza swab which was negative. The patient received 30 mL/kg bolus while in the emergency department. The patient will be continued on fluids at 100 mL an hour. The patient will be treated with antipyretic therapy. We will monitor closely for deterioration. Blood cultures are pending. Urinalysis and urine cultures are also pending. The patient's lactic acid is normal. The patient does not meet criteria for severe sepsis. 2. Lupus. Continue the patient's immunosuppressants medications. The patient received 100 mg of methylprednisolone in the emergency department. We will continue the patient's 40 mg of prednisone daily at home. The patient most recently received rituximab infusion and will be continued on her hydroxychloroquine. The patient will have her platelet count monitored closely while she is in the hospital. If the patient's rash did not improve, rheumatology consultation should be considered. The patient has been discussed with MARIO ALBERTO Moreno of Hematology/Oncology, who agreed with her current management. 3. Elevated troponin. The patient's troponin is elevated, value has been confirmed with lab, this will be trended. Given the patient's age, this is not likely related to demand ischemia even with her high heart rate. The patient has no metabolic risk factors for CAD. Given this, we will obtain a transesophageal echocardiogram to assess for possible pericarditis associated with her lupus. The patient has no chest or any abnormal cardiac findings. The patient has a non- ischemic EKG. 4. Rash. The patient's rash could be a drug reaction or related to virus or further manifestation of her lupus. The patient's rash on her legs is definitely of a different character than the rash on her chest. Biopsy one of those rashes if persistent could help elucidate this though it is not likely necessary. Continue the patient's steroids and immunosuppressants. Use caution with re-dosing rituximab. 5. DVT prophylaxis. SCDs in setting of thrombocytopenia, less than 50,000. 6. FEN. The patient will have a regular unrestricted diet and fluids as above. TIME SPENT: Approximately 60 minutes was spent on the admission of this patient , 30 of which was spent [id number] with the patient obtaining history and physical and discussing treatment plan. This plan was discussed with my attending, Dr. Parris Garrido, and she is in agreement. MARIO ALBERTO PINK ADDENDUM: PRIMARY CARE PROVIDER: Dr. Wong. PANEL EDGE SEALER: Dr. Gómez. WAREHOUSE WORKER 2ND SHIFT: Dr. Goode. ADDENDUM: The case was reviewed and discussed with MARIO ALBERTO Pink. Ms. Parikh is a 33-year-old lady with a past medical history of SLE, diagnosed in June in the setting of thrombocytopenia. She received her Rituxan injection 2 days ago and presents to the emergency room with complaints of right arm pain and a rash. Labs were reviewed. Her platelets are 44 at this time. She had minimally elevated troponin at 0.04. Chest x-ray showed no acute pulmonary disease and a right upper extremity Doppler was negative for DVT. EKG showed sinus tachycardia at 128 beats per minute with no ST-T changes. IMPRESSION: The impression is the patient probably had an allergic reaction to Rituxan and she will be continued on steroids and Benadryl. While in the emergency room, the patient spiked fever and became more tachycardic and the impression is with her immunosuppressed status, she may be developing an infection. So, she will be started on broad spectrum antibiotics. She received IV hydration and we will request cultures. With her history of systemic lupus erythematosus, she is also at risk for rhythm at pulmonary embolism and she also has lower extremity swelling and pain. So, we will check lower extremity Doppler's and CTA of the chest. I am in agreement with the current management and Hematology will resume this patient's care in the morning. PARRIS Garrido MD [id number]/CPS #: [id number] #: [id number] KAYDEN
[2018-10-26] MEDS: oxyCODONE TAB* 5 MG TAB PO PRN ×2 (06:57→19:29)
[2018-10-26 07:31] LABS: ABS Lymphocytes 0.2 10^3/ul (1.0-4.8); ABS Monocytes 0.4 10^3/ul (0-0.8); ABS Neutrophils 6.2 10^3/ul (1.5-7.7); Eosinophil % 0.1 %; Hematocrit 33 % (35-47); Hemoglobin 11.4 g/dL (12.0-16.0); Lymphocyte % 3.5 %; Mean Corpuscular HGB Conc 35 g/dL (31-36); Mean Corpuscular Hemoglobin 29 pg (27-31); Mean Corpuscular Volume 85 fL (80-97); Mean Platelet Volume 11.3 fL (7.4-10.4); Nucleated Red Blood Cells % 0.2; Platelet Count 55 10^3/uL (150-450); Red Blood Count 3.89 10^6 /uL (3.70-4.87); Red Cell Distribution Width 14 % (10.5-15); White Blood Count 6.8 10^3/uL (3.5-10.8)
[2018-10-26 07:41] LABS: BUN/Creatinine Ratio 13.6 (8-20); C Reactive Protein 174.27 mg/L (<8.01); Calcium 8.3 mg/dL (8.6-10.3); EGFR Non-African American 102.5 (>60); Magnesium 2.4 mg/dL (1.9-2.7)
[2018-10-26 08:56] LABS: Erythrocyte Sed Rate 108 mm/Hr (0-19)
[2018-10-26] MEDS: Hydroxychloroquine TAB* 200 MG PO SCH (09:59)
[2018-10-26] MEDS: predniSONE TAB* 20 MG PO SCH (09:59)
[2018-10-26] MEDS: Vancomycin(*) 1,250 MG in NS 0.9% 250 ML* 250 ML IVPB SCH ×2 (10:04→16:33)
[2018-10-26] MEDS: NS 0.9% 1000 ML** 1,000 ML IV SCH ×2 (10:15→22:59)
[2018-10-26] MEDS: Cefepime ADVAN(*) 1 GM in NS 0.9% 50 ML* 50 ML IVPB SCH ×2 (10:17→22:56)
[2018-10-26] MEDS: Cefepime 1 GM in Dextrose(*) 1 GM/50 ML BAG IV SCH (10:38)
[2018-10-26] MEDS: ERGOCALCIFEROL 2000 UNIT PO SCH (11:06)
--- NOTE | 2018-10-26 12:02 | PN ---
Progress Note - Progress Note Date of Service: 10/26/18 SOAP: Subjective: []Feels ok now. Appreciative of the care she has received. Rash to right arm improved, but still on legs and right foot. States that Friday 5/3 AM she woke up sweaty at approx. 0500 with a rash to right arm, "I thought it was a heat rash." Received Rituximab without incident on Friday. Friday went to work but then couldn't move her arm and was sent home. "By the time I got to the ER my foot had a rash." Today right shoulder is sore, but normal ROM. Medications: Acetaminophen (Tylenol Tab*) 650 mg PO Q6H PRN PRN Reason: FEVER/PAIN Diphenhydramine HCl (Benadryl Iv*) 25 mg SLOW PUSH Q6H PRN PRN Reason: ITCHING Hydroxychloroquine Sulfate (Plaquenil Tab*) 200 mg PO DAILY [facility] Last Admin: 10/26/18 09:59 Dose: 200 mg Sodium Chloride (Ns 0.9% 1000 Ml) 1,000 mls @ 100 mls/hr IV PER RATE [facility] Last Admin: 10/26/18 10:15 Dose: 100 mls/hr Vancomycin HCl 1,250 mg/ (Sodium Chloride) 250 mls @ 166.667 mls/hr IVPB Q8H [facility] Last Admin: 10/26/18 10:04 Dose: 166.667 mls/hr Cefepime HCl 1 gm/ Sodium (Chloride) 50 mls @ 100 mls/hr IVPB Q12H [facility] Last Admin: 10/26/18 10:17 Dose: 100 mls/hr Nf:* (Ergocalciferol (Vitamin D2) [ Vitamin D2] 2,000 Unit) 2,000 unit PO DAILY [facility] Last Admin: 10/26/18 11:06 Dose: Not Given Ondansetron HCl (Zofran Inj*) 4 mg IV Q6H PRN PRN Reason: NAUSEA Oxycodone HCl (Roxycodone Tab*) 5 mg PO Q4H PRN PRN Reason: PAIN Last Admin: 10/26/18 06:57 Dose: 5 mg Pharmacy Consult (Vancomycin Per Pharmacy*) 1 note FOLLOW UP .VANC PER PHARMACY [facility] Pharmacy Profile Note (Vancomycin Trough Check) 1 note FOLLOW UP 729 ONE Stop: 10/27/18 07:31 Prednisone (Deltasone Tab*) 40 mg PO DAILY [facility] Last Admin: 10/26/18 09:59 Dose: 40 mg Objective: [] Vital Signs Temp Pulse Resp BP Pulse Ox 99.5 F 107 16 134/88 100 10/26/18 08:06 10/26/18 08:06 10/26/18 08:30 10/26/18 08:06 10/26/18 08:06 A&Ox3, EOMI, neuro grossly non-focal HRR, S1S2, ST on tele, occ. PACs LS clear bilat. +BS, obese, non-tender Right foot dorsal aspect with purpura Scattered blotchy erythema macules to legs, blanchable without pustules Laboratory Results - last 24 hr 10/25/18 10/25/18 10/25/18 15:49 15:50 18:00 WBC 4.8 RBC 4.37 Hgb 12.7 Hct 37 MCV 85 MCH 29 MCHC 34 RDW 14 Plt Count 44 L MPV 10.6 H Neut % (Auto) 87.7 Lymph % (Auto) 6.7 [place] % (Auto) 4.6 Eos % (Auto) 0.4 Baso % (Auto) 0.6 Absolute Neuts (auto) 4.2 Absolute Lymphs (auto) 0.3 L Absolute Monos (auto) 0.2 Absolute Eos (auto) 0.0 Absolute Basos (auto) 0.0 Absolute Nucleated RBC 0.0 Nucleated RBC % 0.0 ESR 103 H INR (Anticoag Therapy) APTT Sodium Potassium Chloride Carbon Dioxide Anion Gap BUN Creatinine Est GFR ( Amer) Est GFR (Non-Af Amer) BUN/Creatinine Ratio Glucose Lactic Acid 1.9 Calcium Magnesium Total Bilirubin AST ALT Alkaline Phosphatase Troponin I 0.05 H* C-Reactive Protein B-Natriuretic Peptide Total Protein Albumin Globulin Albumin/Globulin Ratio TSH Beta HCG, Quant Influenza A (Rapid) Influenza B (Rapid) Blood Type Antibody Screen 10/25/18 10/25/18 10/25/18 18:00 18:00 18:00 WBC RBC Hgb Hct MCV MCH MCHC RDW Plt Count MPV Neut % (Auto) Lymph % (Auto) [place] % (Auto) Eos % (Auto) Baso % (Auto) Absolute Neuts (auto) Absolute Lymphs (auto) Absolute Monos (auto) Absolute Eos (auto) Absolute Basos (auto) Absolute Nucleated RBC Nucleated RBC % ESR INR (Anticoag Therapy) 1.33 H APTT 30.4 Sodium 131 L Potassium 3.5 Chloride 98 L Carbon Dioxide 26 Anion Gap 7 BUN 10 Creatinine 0.86 Est GFR ( Amer) 91.4 Est GFR (Non-Af Amer) 75.5 BUN/Creatinine Ratio 11.6 Glucose 101 H Lactic Acid 2.0 Calcium 9.1 Magnesium 1.8 L Total Bilirubin 0.70 AST 19 ALT 14 Alkaline Phosphatase 52 Troponin I 0.04 H* C-Reactive Protein B-Natriuretic Peptide Total Protein 8.7 Albumin 3.9 Globulin 4.8 H Albumin/Globulin Ratio 0.8 L TSH 2.14 Beta HCG, Quant < 0.60 Influenza A (Rapid) Influenza B (Rapid) Blood Type Antibody Screen 10/25/18 10/25/18 10/25/18 18:00 18:00 20:00 WBC RBC Hgb Hct MCV MCH MCHC RDW Plt Count MPV Neut % (Auto) Lymph % (Auto) [place] % (Auto) Eos % (Auto) Baso % (Auto) Absolute Neuts (auto) Absolute Lymphs (auto) Absolute Monos (auto) Absolute Eos (auto) Absolute Basos (auto) Absolute Nucleated RBC Nucleated RBC % ESR INR (Anticoag Therapy) APTT Sodium Potassium Chloride Carbon Dioxide Anion Gap BUN Creatinine Est GFR ( Amer) Est GFR (Non-Af Amer) BUN/Creatinine Ratio Glucose Lactic Acid Calcium Magnesium Total Bilirubin AST ALT Alkaline Phosphatase Troponin I C-Reactive Protein B-Natriuretic Peptide 65 Total Protein Albumin Globulin Albumin/Globulin Ratio TSH Beta HCG, Quant Influenza A (Rapid) Negative Influenza B (Rapid) Negative Blood Type B Positive Antibody Screen Negative 10/25/18 10/26/18 10/26/18 23:34 06:43 06:43 WBC 6.8 RBC 3.89 Hgb 11.4 L Hct 33 L MCV 85 MCH 29 MCHC 35 RDW 14 Plt Count 55 L MPV 11.3 H Neut % (Auto) 91.0 Lymph % (Auto) 3.5 [place] % (Auto) 5.3 Eos % (Auto) 0.1 Baso % (Auto) 0.1 Absolute Neuts (auto) 6.2 Absolute Lymphs (auto) 0.2 L Absolute Monos (auto) 0.4 Absolute Eos (auto) 0.0 Absolute Basos (auto) 0.0 Absolute Nucleated RBC 0.0 Nucleated RBC % 0.2 ESR 108 H INR (Anticoag Therapy) APTT Sodium 135 Potassium 4.0 Chloride 105 Carbon Dioxide 22 Anion Gap 8 BUN 9 Creatinine 0.66 Est GFR ( Amer) 124.0 Est GFR (Non-Af Amer) 102.5 BUN/Creatinine Ratio 13.6 Glucose 112 H Lactic Acid Calcium 8.3 L Magnesium 2.4 Total Bilirubin AST ALT Alkaline Phosphatase Troponin I 0.05 H* C-Reactive Protein 174.27 H B-Natriuretic Peptide Total Protein Albumin Globulin Albumin/Globulin Ratio TSH Beta HCG, Quant Influenza A (Rapid) Influenza B (Rapid) Blood Type Antibody Screen Tmax 103.3F 5/5 @ 2100 Negative right arm and right leg dopplers CTA Chest negative Assessment: []33 yo female with recently diagnosed lupus and ITP now s/p cycle 3 of 4 weekly Rituximab with improving platelets. Johanna was admitted overnight due to a fever and rash, initially with some suspicion for reaction to Rituximab, however she tells me the rash started Friday AM, therefore I am more suspicious for a viral syndrome. Plan: []1. Fever and rash: likely viral, however will cont. IV abx. until cultures negative 2. Agree with current work-up 3. Monitor daily counts
--- NOTE | 2018-10-26 13:37 | ECHO ---
*[facility]* [place] [address] Fax #: [phone] Transthoracic Echocardiogram Patient: Jl, Height: 74 in / 188 Johanna Romo cm : 1985 Weight: 262.5 lb / Study Date: 10/26/2018 119.3 kg Age: 33 BP: 122 / 76 Gender: F BMI/BSA: 33.8 kg/m^2 HR: 106 bpm / 2.44 m^2 *Mold Capper: * Bhavana Chin [facility] *Referring Physician: * Delmer Ortiz *Reading Physician: * Nicko Conti MD Indications: Abnormal EKG. Elevated TROP. History: Lupus, thrombocytopenia. Conclusions Summary: 1. Left ventricle: The cavity size is normal. Wall thickness is mildly increased. Left ventricular diastolic function parameters are normal. 2. Right ventricle: Systolic pressure is within the normal range. 3. Mitral valve: There is mild regurgitation. 4. Aortic valve: There is no evidence of stenosis. There is no significant regurgitation. 5. Tricuspid valve: There is mild regurgitation. 6. Study data: No prior study is available for comparison. Study data: Transthoracic echocardiogram. Procedure: Transthoracic echocardiography was performed. Image quality was good. Complete 2D, spectral Doppler, and color flow Doppler. Location: Bedside. Patient status: Inpatient. Patient room number: 440. No prior study is available for comparison. Rhythm: Tachycardia. Findings Left ventricle: The cavity size is normal. Wall thickness is mildly increased. Systolic function is normal. The estimated ejection fraction is 50-55%. Wall motion is normal; there are no regional wall motion abnormalities. Left ventricular diastolic function parameters are normal. Right ventricle: The cavity size is normal. Wall thickness is normal. Systolic function is normal. Systolic pressure is within the normal range. Right atrium: The atrium is normal in size. Mitral valve: The leaflets are normal thickness. There is no evidence of stenosis. There is mild regurgitation. The peak diastolic gradient is 3.9 mm Hg. Aortic valve: The valve is trileaflet. There is no evidence of stenosis. There is no significant regurgitation. The ratio of LVOT to aortic valve peak velocity is 0.78. The ratio of LVOT to aortic valve mean velocity is 0.74. The mean systolic gradient is 3.0 mm Hg. The peak systolic gradient is 6.0 mm Hg. Tricuspid valve: The leaflets are normal thickness. There is no evidence of stenosis. There is mild regurgitation. Pulmonic valve: The leaflets are normal thickness. There is no evidence of stenosis. There is trivial regurgitation. The peak systolic gradient is 2.0 mm Hg. Aorta: Aortic arch: The aortic arch is appears normal. The aortic root is not dilated. Pericardium: There is no significant pericardial effusion. Pulmonary arteries: Not well visualized. Systemic veins: Inferior vena cava: The vessel is dilated. The respirophasic diameter changes are in the normal range (>= 50%). Measurements Left ventricle Value Ref Aortic valve Value Ref ZECHARIAH, LAX 4.7 cm 3.8 - 5.2 Rao diam, ED 2.2 cm ----- ESD, LAX 3.4 cm 2.2 - 3.5 Peak v, S 1.18 m/sec ----- FS, LAX 29 % 27 - 45 VTI, S 22.0 cm ----- PW, ED, LAX (H) 1.1 cm 0.6 - 0.9 Mean grad, S 3.0 mm Hg ----- EF 56 % 54 - 74 Peak grad, S 6.0 mm Hg ----- E', lat rao, TDI 11.8 cm/sec >=10.0 E/e', lat rao, 8 Mitral valve Value Ref TDI Peak E 0.98 m/sec ----- E', med rao, TDI 10.1 cm/sec >=7.0 Peak A 0.85 m/sec --- -- E/e', med rao, 10 Decel time 100 ms ----- TDI Peak grad, D 3.9 mm Hg ----- E', avg, TDI 11.0 cm/sec Peak E/A ratio 1.2 ----- E/e', avg, TDI 9 <=14 Tricuspid valve Value Ref LVOT Value Ref TR peak v 2.4 m/sec <=2.8 Peak jack, S 0.92 m/sec Peak RV-RA grad, S 23 mm Hg ----- Mean grad, S 2 mm Hg Aortic root Value Ref Ventricular septum Value Ref Root diam 3.1 cm <4.2 IVS, ED, LAX (H) 1.1 cm 0.6 - 0.9 Ascending aorta Value Ref Right ventricle Value Ref AAo AP diam, S 2.7 cm ----- ZECHARIAH, LAX 2.4 cm ZECHARIAH minor ax, A4C 3.4 cm 1.9 - 3.5 Aortic arch Value Ref mid Arch diam 2.5 cm ----- Pressure, S 26 mm Hg Decending aorta Value Ref Left atrium Value Ref Allison peak jack 0.94 m/sec ----- AP dim, ES 3.60 cm 2.70 - 3.80 Pulmonary artery Value Ref ML dim, A4C 5.2 cm Pressure, S 24.0 mm Hg ----- SI dim, A4C 5.4 cm Vol/bsa, ES, A/L 30 ml/m^2 16 - 34 Inferior vena cava Value Ref Diam 3.2 cm ----- Right atrium Value Ref SI dim, ES 4.5 cm 3.4 - 5.3 ML dim, ES, A4C 3.6 cm 2.6 - 4.4 Estimated RAP 3 mm Hg Legend: (L) and (H) chela values outside specified reference range. Prepared and electronically signed by Nicko Conti MD 10/26/2018 13:36
[2018-10-26 23:14] LABS: Urine Appearance Clear; Urine Bacteria Absent (Absent); Urine Bilirubin Negative (Negative); Urine Blood 1+ (Negative); Urine Color Yellow; Urine Glucose Negative (Negative); Urine Ketones Negative (Negative); Urine Nitrite Negative (Negative); Urine Protein Negative (Negative); Urine Red Blood Cell 3+(>10/hpf) (Absent); Urine Specific Gravity 1.015 (1.010-1.030); Urine Squamous Epithelial Cell Present (Absent); Urine Urobilinogen Negative (Negative); Urine White Blood Cell Absent (Absent)
[2018-10-27] MEDS: Vancomycin(*) 1,250 MG in NS 0.9% 250 ML* 250 ML IVPB SCH ×2 (00:08→08:26)
[2018-10-27] MEDS ORDERED: Vancomycin Trough Check NOTE FOLLOW UP ONE (07:30)
[2018-10-27] MEDS: predniSONE TAB* 20 MG PO SCH (08:24)
[2018-10-27] MEDS: ERGOCALCIFEROL 2000 UNIT PO SCH (08:37)
[2018-10-27] MEDS: Hydroxychloroquine TAB* 200 MG PO SCH (08:47)
[2018-10-27 09:55] LABS: Hematocrit 32 % (35-47); Hemoglobin 10.7 g/dL (12.0-16.0); Mean Corpuscular HGB Conc 34 g/dL (31-36); Mean Corpuscular Hemoglobin 29 pg (27-31); Mean Corpuscular Volume 86 fL (80-97); Red Blood Count 3.71 10^6 /uL (3.70-4.87); Red Cell Distribution Width 14 % (10.5-15); White Blood Count 5.5 10^3/uL (3.5-10.8)
--- NOTE | 2018-10-27 10:30 | DS ---
- Discharge Summary Admission Date: 10/25/18 Discharge Date: 10/27/18 Discharge Diagnosis: 1. Fever: resolved, cultures negative however with suspicion for sepsis on admission d/c with PO abx. 2. Tachycardia: sinus arrhythmia, start beta-shon and f/u with primary 3. Purpura: suspect 2/2 lupus with associated ITP, monitor 4. Lupus: suspect admission r/t flare, will f/u with rheumotology Discharge Diagnosis: Medication Instructions Recorded Confirmed Type Ergocalciferol (Vitamin D2) 2,000 unit PO DAILY 09/18/18 10/25/18 History [Vitamin D2] Acetaminophen [Tylenol] 650 mg PO QID PRN 10/25/18 10/25/18 History Hydroxychloroquine TAB* [Plaquenil 200 mg PO DAILY 10/25/18 10/25/18 History TAB*] Amoxicillin/Clavulanate TAB* 500 mg PO BID #13 tab 10/27/18 Rx [Augmentin TAB 500 mg*] Metoprolol Tartrate TAB* 12.5 mg PO Q12HR #60 tab 10/27/18 Rx [Lopressor TAB*] predniSONE TAB* [Deltasone 20 MG 40 mg PO DAILY #0 10/27/18 10/25/18 Rx TAB*] Disposition: stable Diet: low salt, heart healthy Activity: low impact activity Hospital Course: Please see admission note for full H&P, however, briefly, Ms. Parikh is well known to our service due to her recent diagnosis of ITP. She was also diagnosed with Lupus earlier this year. Ms. Parikh is currently receiving weekly Rituximab, s/p 3 of planned 4 given on 10/23. She presented to the ER on with a rash and right arm pain. During her work-up she developed a fever and tachycardia as well. She was admitted with work-up including doppler of the right arm and right leg, CTA of the chest, and administration of antibiotics. Her work-up was negative with blood cultures revealing only staph epidermis, likely a contaminant. An echo yesterday was negative. Her rash has faded and is likely a purpura secondary to known lupus and ITP. She has not been febrile in over 24 hours and states that she feels well, close to baseline. During her admission she has been tachycardic with mild hypertension therefore she will be started on a beta-shon on discharge. She will continue PO abx. for a full week. I have recommended f/u with her primary care doctor in regards to her new hypertension and she will follow-up with Dr. Goode regarding her lupus. This acute admission likely represents a lupus flare, though she may have a viral illness as well, however ultimately she is stable and no longer requires inpatient treatment. She will follow-up with our team on 10/30 prior to receiving her last dose of Rituximab. >40 min spent with >50% face to face counseling
[2018-10-27 11:00] LABS: ABS Lymphocytes 0.5 10^3/ul (1.0-4.8); ABS Monocytes 0.2 10^3/ul (0-0.8); ABS Neutrophils 4.8 10^3/ul (1.5-7.7); Eosinophil % 0.8 %; Lymphocyte % 8.6 %; Mean Platelet Volume 11.2 fL (7.4-10.4); Platelet Count 79 10^3/uL (150-450)
[2018-10-27] MEDS ORDERED: Metoprolol Tartrate TAB* 25 MG PO SCH (11:00)
[2018-10-27 15:12] VITALS: BP 142/84
[2018-10-27] MEDS ORDERED: Amoxicillin/Clavulanate TAB* 500 MG PO SCH (21:00)
[2018-10-29] MEDS ORDERED: Vancomycin Trough Check NOTE FOLLOW UP ONE (07:30)
== END 2018-10-27 15:53 | disposition home or self-care (01) | DRG 720 ==
LOC: ED 14:34 → MEDTELE 20:22
PROVIDERS: ADMIT Internal Medicine; ATTEND Internal Medicine Hematology & Oncology
DX: A41.9 Sepsis, unspecified organism (principal); D69.3 Immune thrombocytopenic purpura; M32.9 Systemic lupus erythematosus, unspecified; B34.9 Viral infection, unspecified; R74.8 Abnormal levels of other serum enzymes; K21.9 Gastro-esophageal reflux disease without esophagitis; Z79.52 Long term (current) use of systemic steroids; Z79.899 Other long term (current) drug therapy; Z80.0 Family history of malignant neoplasm of digestive organs
CPT/HCPCS: 36415; 71046; 71275; 80048; 80053; 80202; 81003; 81015; 83605; 83735; 83880; 84443; 84484; 84702; 85025; 85610; 85652; 85730; 86140; 86850; 86900; 86901; 87040; 87077; 87150; 87205; 93005; 93306; 99232; 99239; 99284; A9270-GY; J0692; J1200; J2270; J2920; J3370; J3475; J7512; Q9967

== ENCOUNTER 2021-07-10 11:46 | Inpatient (IN) ==
[~2021-07-10 11:46] MED LIST: Buffered Lidocaine 1% SYRIN 1 ml INTRADERM ONE; Dinoprostone 10 MG VAG.SUPP VAGINAL ONE; Lactated Ringers 1000 ml BAG 1,000 ML IV ONE
[2021-07-10 13:09] LABS: Hematocrit 36 % (35-47); Hemoglobin 12.2 g/dL (12.0-16.0); Mean Corpuscular HGB Conc 34 g/dL (31-36); Mean Corpuscular Hemoglobin 30 pg (27-31); Mean Corpuscular Volume 89 fL (80-97); Mean Platelet Volume 11.8 fL (7.4-10.4); Platelet Count 130 10^3/uL (150-450); Red Blood Count 4.02 10^6 /uL (3.70-4.87); Red Cell Distribution Width 13 % (10-15); White Blood Count 4.5 10^3/uL (3.5-10.8)
[2021-07-10 13:25] LABS: Albumin 3.4 g/dL (3.2-5.2); Calcium 9.1 mg/dL (8.6-10.3); Globulin 3.4 g/dL (2-4); Potassium 3.6 mmol/L (3.5-5.0); Total Bilirubin 0.5 mg/dL (0.2-1.0); Total Protein 6.8 g/dL (6.4-8.9); eGFR CKD-EPI 123.4 (>60)
[2021-07-10 13:39] LABS: Urine Benzodiazepine Screen None Detected (None Detect); Urine Cannabinoids Screen Presumptive Positive (None Detect); Urine Opiates Screen None Detected (None Detect)
[2021-07-10 13:43] LABS: ABS Lymphocytes 0.7 10^3/ul (1.0-4.8); ABS Monocytes 0.4 10^3/ul (0-0.8); ABS Neutrophils 3.4 10^3/ul (1.5-7.7); Eosinophil % 0.1 %; Lymphocyte % 14.6 %; Nucleated Red Blood Cells % 0.1
[2021-07-10 14:33] LABS: Urine Appearance Turbid; Urine Bilirubin Negative (Negative); Urine Blood Negative (Negative); Urine Color Amber; Urine Glucose Negative (Negative); Urine Ketones 1+ (Negative); Urine Nitrite Negative (Negative); Urine Protein 2+(100 mg/dL) (Negative); Urine Specific Gravity 1.027 (1.002-1.030); Urine Urobilinogen Negative (Negative)
[2021-07-10 14:38] LABS: Urine Bacteria Absent (Absent); Urine Red Blood Cell Trace(0-2/hpf) (Absent); Urine Squamous Epithelial Cell Present (Absent); Urine White Blood Cell Trace(0-5/hpf) (Absent)
[2021-07-11] MEDS: Hydrocortisone INJ 100 MG/2ML 2 ML VIAL IV SCH ×2 (07:18→16:37)
[2021-07-11] MEDS ORDERED: Oxytocin in LR 20 UNITS/1,000 ML BAG IVPB ONE (13:52)
[2021-07-11] MEDS ORDERED: Oxytocin in LR 20 UNITS/1,000 ML BAG IVPB SCH (14:00)
[2021-07-11] MEDS: Lactated Ringers 1000 ml BAG 1,000 ML IV SCH (14:06)
[2021-07-11 19:48] LABS: Hematocrit 38 % (35-47); Hemoglobin 12.8 g/dL (12.0-16.0); Mean Corpuscular HGB Conc 34 g/dL (31-36); Mean Corpuscular Hemoglobin 30 pg (27-31); Mean Corpuscular Volume 89 fL (80-97); Platelet Count 143 10^3/uL (150-450); Red Blood Count 4.27 10^6 /uL (3.70-4.87); Red Cell Distribution Width 13 % (10-15); White Blood Count 7.6 10^3/uL (3.5-10.8)
[2021-07-11 20:04] LABS: Albumin 3.5 g/dL (3.2-5.2); Albumin/Globulin Ratio 0.9 (1-3); Calcium 9.1 mg/dL (8.6-10.3); Globulin 3.7 g/dL (2-4); Potassium 4.2 mmol/L (3.5-5.0); Total Bilirubin 0.3 mg/dL (0.2-1.0); Total Protein 7.2 g/dL (6.4-8.9); eGFR CKD-EPI 122.8 (>60)
[2021-07-12] MEDS: Oxytocin in LR 20 UNITS/1,000 ML BAG IVPB SCH ×2 (01:34→14:05)
[2021-07-12] MEDS: Lactated Ringers 1000 ml BAG 1,000 ML IV SCH (07:14)
[2021-07-12] MEDS: Hydrocortisone INJ 100 MG/2ML 2 ML VIAL IV SCH ×2 (08:23)
[2021-07-12] MEDS ORDERED: OBEPIDURAL 250 ML EPIDURAL ONE (08:52)
[2021-07-12 10:20] LABS: ABS Lymphocytes 0.8 10^3/ul (1.0-4.8); ABS Monocytes 0.7 10^3/ul (0-0.8); ABS Neutrophils 13.2 10^3/ul (1.5-7.7); Hematocrit 41 % (35-47); Hemoglobin 13.7 g/dL (12.0-16.0); Lymphocyte % 5.3 %; Mean Corpuscular HGB Conc 34 g/dL (31-36); Mean Corpuscular Hemoglobin 30 pg (27-31); Mean Corpuscular Volume 89 fL (80-97); Mean Platelet Volume 11.3 fL (7.4-10.4); Platelet Count 142 10^3/uL (150-450); Red Blood Count 4.55 10^6 /uL (3.70-4.87); Red Cell Distribution Width 14 % (10-15); White Blood Count 14.8 10^3/uL (3.5-10.8)
[2021-07-12] MEDS ORDERED: Lactated Ringers 1000 ml BAG 1,000 ML IV ONE (11:04)
[2021-07-12] MEDS ORDERED: Phenylephrine 40 mcg/mL 10mL (400mcg) SYRINGE IV PUSH PRN (11:04)
[2021-07-12] MEDS ORDERED: Lactated Ringers 1000 ml BAG 500 ML IV PRN (11:04)
[2021-07-12] MEDS ORDERED: Sodium Citrate/Citric Acid LIQ 15 ML UDC PO PRN (11:04)
[2021-07-12] MEDS ORDERED: EPHEDrine (Pressors) 50 MG/ML VIAL IV PUSH PRN (11:04)
[2021-07-12] MEDS ORDERED: OBEPIDURAL 250 ML EPIDURAL SCH (12:00)
[2021-07-12] MEDS ORDERED: Lactated Ringers 1000 ml BAG 1,000 ML IV SCH ×2 (12:00→16:00)
[2021-07-12 13:20] LABS: Urine Appearance Cloudy; Urine Bilirubin Negative (Negative); Urine Blood 2+ (Negative); Urine Color Yellow; Urine Glucose 1+(50 mg/dL) (Negative); Urine Ketones 2+ (Negative); Urine Nitrite Negative (Negative); Urine Protein 3+(>=500 mg/dL) (Negative); Urine Specific Gravity 1.027 (1.002-1.030); Urine Urobilinogen Negative (Negative)
[2021-07-12 13:24] LABS: Urine Bacteria Absent (Absent); Urine Red Blood Cell 3+(>10/hpf) (Absent); Urine Squamous Epithelial Cell Present (Absent); Urine White Blood Cell Trace(0-5/hpf) (Absent)
[2021-07-12] MEDS ORDERED: Witch Hazel PAD JAR TOPICAL PRN (15:04)
[2021-07-12] MEDS ORDERED: Glycerin ADULT 2.4 gm SUPP PR PRN (15:04)
[2021-07-12] MEDS ORDERED: Dibucaine 1% OINT 28.35 GM TUBE PR PRN (15:04)
[2021-07-12] MEDS ORDERED: Oxytocin in LR 20 UNITS/1,000 ML BAG IVPB SCH (16:00)
[2021-07-12] MEDS ORDERED: ceFAZolin 2 GM PREMIX 2 GM/50 ML BAG IVPB ONE (16:00)
[2021-07-13 06:39] LABS: ABS Lymphocytes 1.3 10^3/ul (1.0-4.8); ABS Monocytes 1.3 10^3/ul (0-0.8); ABS Neutrophils 15.3 10^3/ul (1.5-7.7); Hematocrit 33 % (35-47); Hemoglobin 11.1 g/dL (12.0-16.0); Lymphocyte % 7.1 %; Mean Corpuscular HGB Conc 34 g/dL (31-36); Mean Corpuscular Hemoglobin 30 pg (27-31); Mean Corpuscular Volume 89 fL (80-97); Mean Platelet Volume 11.8 fL (7.4-10.4); Platelet Count 136 10^3/uL (150-450); Red Blood Count 3.67 10^6 /uL (3.70-4.87); Red Cell Distribution Width 13 % (10-15); White Blood Count 17.9 10^3/uL (3.5-10.8)
[2021-07-13 11:48] LABS: Magnesium 1.5 mg/dL (1.9-2.7); Phosphorus 3.2 mg/dL (2.5-5.0)
[2021-07-13] MEDS ORDERED: Magnesium Sulfate 2 gm BAG 2 GM/50 ML BAG IVPB ONE (15:10)
[2021-07-13 21:26] LABS: ABS Lymphocytes 1.5 10^3/ul (1.0-4.8); ABS Monocytes 1.1 10^3/ul (0-0.8); ABS Neutrophils 11.8 10^3/ul (1.5-7.7); Eosinophil % 0.1 %; Hematocrit 32 % (35-47); Hemoglobin 10.8 g/dL (12.0-16.0); Lymphocyte % 10.6 %; Mean Corpuscular HGB Conc 34 g/dL (31-36); Mean Corpuscular Hemoglobin 30 pg (27-31); Mean Corpuscular Volume 89 fL (80-97); Mean Platelet Volume 11.6 fL (7.4-10.4); Platelet Count 146 10^3/uL (150-450); Red Cell Distribution Width 14 % (10-15); White Blood Count 14.5 10^3/uL (3.5-10.8)
[2021-07-13] MEDS: Hydrocortisone INJ 100 MG/2ML 2 ML VIAL IV SCH (21:31)
[2021-07-13 21:46] LABS: eGFR CKD-EPI 119.7 (>60)
[2021-07-13] MEDS: Heparin 5000 UNITS/ML 1 mL VIAL SUBCUT SCH (22:03)
[2021-07-14] MEDS: Heparin 5000 UNITS/ML 1 mL VIAL SUBCUT SCH ×2 (05:59→14:23)
[2021-07-14 08:04] LABS: ABS Lymphocytes 1.2 10^3/ul (1.0-4.8); ABS Monocytes 0.8 10^3/ul (0-0.8); ABS Neutrophils 7.5 10^3/ul (1.5-7.7); Eosinophil % 0.3 %; Hematocrit 30 % (35-47); Hemoglobin 10.5 g/dL (12.0-16.0); Lymphocyte % 12.7 %; Mean Corpuscular HGB Conc 35 g/dL (31-36); Mean Corpuscular Hemoglobin 31 pg (27-31); Mean Corpuscular Volume 89 fL (80-97); Mean Platelet Volume 11.1 fL (7.4-10.4); Nucleated Red Blood Cells % 0.1; Platelet Count 130 10^3/uL (150-450); Red Blood Count 3.43 10^6 /uL (3.70-4.87); Red Cell Distribution Width 14 % (10-15); White Blood Count 9.6 10^3/uL (3.5-10.8)
[2021-07-14 08:15] VITALS: BP 143/88
[2021-07-14 08:21] LABS: Calcium 8.2 mg/dL (8.6-10.3); Magnesium 1.6 mg/dL (1.9-2.7); eGFR CKD-EPI 119.7 (>60)
[2021-07-14] MEDS ORDERED: Magnesium Sulfate 2 gm BAG 2 GM/50 ML BAG IVPB ONE (08:33)
== END 2021-07-14 14:54 | disposition home or self-care (01) | DRG 542 ==
LOC: MCHOBOUT 11:46 → MCHOB 12:50
PROVIDERS: ADMIT Obstetrics & Gynecology; ATTEND Obstetrics & Gynecology